=== PATIENT | female | born 1950 | race Caucasian/White ===

== ENCOUNTER 2020-01-28 10:16 | Outpatient (CLI) | payer MEDICARE, SELFPAY ==
--- NOTE | ~2020-01-28 | CT_ITS ---
EXAMINATION: CT chest wo con EXAM DATE: 01/28/2020 10:41 INDICATION: Pulmonary nodule follow-up. TECHNIQUE: Spiral CT of the chest without contrast. Axial, coronal and sagittal images were reviewe d. Coronal maximum intensity pixel images of chest reviewed. The dose-length product (DLP) for this examination was 70.14 mGy-cm. The exposure was tailored according to patient size (auto mA exposure control), and iterative reconstruction (ASIR) was used as additional dose reduction technique. Sandoval rison is made to prior examination from 02/09/2019. FINDINGS: Slight interval decrease in previously seen right upper lobe 6 mm nodule, now measuring ab out 5 mm. Several additional nodules bilaterally 3 mm or less, stable. There is mild emphysema and hy perinflation. Linear by basilar subsegmental atelectasis. There are no pleural or pericardial effusio ns. Tracheobronchial tree is patent. There is no mediastinal, hilar or axillary lymphadenopathy. There is no pneumothorax. Heart normal in size. There is mild coronary arterial calcification, arterial sclerosis. Upper abdomen is unremarkable. There is thoracic spondylosis without osteoblas tic or osteolytic lesions identified. IMPRESSION: 1. Small granulomas requiring no further evaluation. 2. Mild emphysema and hyperinflation. Reviewed, dictated and finalized at location A.
== END 2020-01-28 10:17 | disposition home or self-care (01) ==
LOC: ANHIMG 10:19
PROVIDERS: PCP Internal Medicine; Visit Provider Internal Medicine
DX: R91.1 Solitary pulmonary nodule (principal); J43.9 Emphysema, unspecified; R91.8 Other nonspecific abnormal finding of lung field
CPT/HCPCS: 71250

== ENCOUNTER 2020-06-02 13:47 | Outpatient (CLI) | payer MEDICARE, SELFPAY ==
--- NOTE | ~2020-06-02 | US_ITS ---
EXAMINATION: US carotid duplex BI DATE: 06/02/2020 14:29 INDICATION: Carotid stenosis TECHNIQUE: Grayscale, color Doppler, and pulsed Doppler images of the cervical carotid arteries were obtained. The degree of vessel stenosis is placed in one of the following categories: normal, <50%, 5 0-69%, >=70% but less than near-occlusion, near-occlusion, or total occlusion. Note that percent sten osis relative to normal distal artery lumen diameter is indirectly measured from velocity measurement s as described by William, et al. Radiology 2003; 229:340-346. Notes: Normal: Peak systolic velocity <125 centimeters/sec and no plaque <50%. Peak systolic velocity <125 ( EDV <40; ICA/CCA PSV ratio <2.0; used these factors only a tandem lesions or low cardiac output or co ntralateral disease) 50-69 %: PSV 125-230 (EDV 40-100; ratio 2-4) >= 70% but less than near occlusion: PSV greater than 230 (EDV > 100; ratio> 4.0) Near Occlusion: PSV that is variable; markedly narrowed lumen Occlusion: Absent flow on color/spectral Doppler and no lumen on berger scale. COMPARISON: None. FINDINGS: RIGHT: The right common carotid artery (CCA) peak systolic velocity (PSV) is 76 cm/s. The right internal car otid artery (ICA) PSV is 155 cm/s. The right ICA end-diastolic velocity (EDV) is 32 cm/s. The right I CA/CCA PSV ratio is 2.1. The external carotid artery (ECA) PSV is 142 cm/s. There is antegrade flow i n the right vertebral artery. LEFT: The left CCA PSV is 81 cm/s. The left ICA PSV is 87 cm/s. The left ICA EDV is 22 cm/s. The left ICA/C CA PSV ratio is 1.1. The ECA PSV is 66 cm/s. There is antegrade flow in the left vertebral artery. IMPRESSION: 1. 50-69% stenosis in the right internal carotid artery by sonographic criteria. 2. Less than 50% stenosis in the left internal carotid artery by sonographic criteria. Reviewed, dictated and finalized at location B. IMPRESSION: 1. 50-69% stenosis in the right internal carotid artery by sonographic criteria . 2. Less than 50% stenosis in the left internal carotid artery by sonographic cr iteria.
== END 2020-06-02 13:48 | disposition home or self-care (01) ==
PROVIDERS: PCP Internal Medicine; Visit Provider Internal Medicine
DX: R09.89 Other specified symptoms and signs involving the circulatory and respiratory systems (principal); I65.23 Occlusion and stenosis of bilateral carotid arteries
CPT/HCPCS: 93880

== ENCOUNTER 2020-08-25 15:17 | Outpatient (CLI) | payer MEDICARE, SELFPAY ==
--- NOTE | ~2020-08-25 | MM_ITS ---
EXAMINATION: MM screening natalya BI w serene HISTORY: Screening TECHNIQUE: Craniocaudal and mediolateral oblique 3-D tomosynthesis images were obtained and synthetic 2-D images were generated. CAD analysis was submitted and interpreted. COMPARISON: Comparison to multiple prior studies sequentially, with oldest reviewed study dated 01/03. BREAST PARENCHYMAL COMPOSITION: The breasts are heterogeneously dense, which may obscure small masses . FINDINGS: There is no evidence of suspicious mass, calcification, or architectural distortion to sugg est malignancy in either breast. There has been no suspicious interval change. IMPRESSION: 1. No mammographic evidence of malignancy. 2. Recommend routine screening mammography in one year. BI-RADS Category 1: Negative Reviewed, dictated and finalized at location A.
== END 2020-08-25 15:18 | disposition home or self-care (01) ==
LOC: ANHIMG 15:31
PROVIDERS: PCP Internal Medicine; Visit Provider Obstetrics & Gynecology
DX: Z12.31 Encounter for screening mammogram for malignant neoplasm of breast (principal)
CPT/HCPCS: 77063; 77067

== ENCOUNTER 2020-09-16 16:22 | Emergency (ER) | payer MEDICARE, SELFPAY ==
[2020-09-16] VITALS (9 sets, daily range): BP systolic 135–183; BP diastolic 63–73; PULSE 86–95; RESP 12–26; TEMP 36.4–36.7; O2SAT 95–97
--- NOTE | ~2020-09-16 | XR_ITS ---
EXAMINATION: XR chest 2V 09/16/2020 18:42 INDICATION: Dizziness. Vomiting. Shortness of breath. PROCEDURE: AP and lateral views of the chest COMPARISON: 2 view chest FINDINGS: The lungs are clear. The lungs are hyperinflated which is consistent with, but not diagnost ic of chronic obstructive pulmonary disease. The cardiomediastinal silhouette is within normal limits . There are no pleural effusions. There is no pneumothorax suspected. IMPRESSION: 1: NO ACUTE CARDIOPULMONARY DISEASE. Reviewed, dictated and finalized at location A.
--- NOTE | ~2020-09-16 | CT_ITS ---
EXAMINATION: CTA brain carotid DATE: 09/16/2020 20:38 CDT INDICATION: Right arm weakness. TECHNIQUE: Computed tomographic angiography (CTA) of the head was performed without and with 100 mL O mnipaque-350 intravenous contrast. CTA of the neck was performed with intravenous contrast. The dose- length product was 1594.90 mGy-cm. Maximum intensity projection and volume rendered 3D-reconstruction s were created by the technologist on a separate workstation. COMPARISON: CT dated 08/09/2014. FINDINGS: HEAD CTA: There is hypoattenuation of the right frontal lobe, suspicious for subacute/chronic infarct ion. Consider correlation with MRI to further assess acuity. Stable hyperdense lesion right caudate h ead, possibly treated metastatic disease. Patient has known history of malignant melanoma. There are scattered mild periventricular and subcortical white matter changes, most likely related to small ves fxo ischemic disease (microangiopathy). No there are bilateral lens implants. Small osteoma left ethm oid air cells. There is atherosclerotic change of the intracranial vasculature. There is a 4 mm aneurysm at the junction of M1 and M2 segments of the right MCA. No significant steno sis or occlusion in the central or large intracranial arteries. There is atherosclerotic change of th e distal ICAs. No significant stenosis. NECK CTA: There is atherosclerosis of the carotid bulbs and proximal ICAs. No significant stenosis, o cclusion or dissection. There is prominence of the esophageal wall, suspicious for esophagitis. There is atherosclerosis of the aorta at the origin of the great vessels without significant stenosis. The re is atherosclerosis of the vertebral arteries. Scarring of the lung apices with emphysematous finney es. Mediastinal lymph nodes are mildly prominent, likely reactive. These are partially visualized. He terogeneous thyroid gland with small subcentimeter hypodensities, likely benign. There are degenerati ve changes of the spine. There is less than 50% stenosis of the proximal right internal carotid artery relative to normal dist al artery lumen diameter (NASCET criteria). There is less than 50% stenosis of the proximal left inte rnal carotid artery relative to normal distal artery lumen diameter. IMPRESSION: 1. Focal hypoattenuation right frontal lobe, suspicious for subacute/chronic infarction. Consider cor relation with MRI. 2: Stable hyperdense lesion right caudate nucleus. 3: 4 mm intracranial aneurysm at the junction of M1 and M2 segments of the right MCA. 4: Atherosclerotic changes of the carotid arteries with left-sided and 50% stenosis of the internal c arotid arteries by NASCET criteria. 5: Thickening of the esophagus, suspicious for esophagitis. Reviewed, dictated and finalized at location A. IMPRESSION: 1. Focal hypoattenuation right frontal lobe, suspicious for subacute/chronic in farction. Consider correlation with MRI. 2: Stable hyperdense lesion right caudate nucleus. 3: 4 mm intracranial aneurysm at the junction of M1 and M2 segments of the righ t MCA. 4: Atherosclerotic changes of the carotid arteries with left-sided and 50% sten osis of the internal carotid arteries by NASCET criteria. 5: Thickening of the esophagus, suspicious for esophagitis.
--- NOTE | 2020-09-16 17:17 | ED.GENADULT ---
HPI - General Adult General Chief complaint: Neuro Symptoms/Deficit Stated complaint: limb weakness Time Seen by Provider: 09/16/20 16:40 Source: patient History of Present Illness HPI narrative: 70-year-old female presents to emergency department for right arm weakness that she noticed earlier today prior to arrival. Patient states he was in the shower, and was having difficulty using her right arm. This lasted for a few minutes. Patient states he has never had this in the past before. She states she felt dizzy and vomited afterwards. She currently reports a headache at this time, has had this headache for about 3 weeks. Related Data Home Medications Medication Instructions Recorded Confirmed calcium citrate-ergocalciferol tablet PO 10/31/19 09/02/20 (vitamin D2) 250 mg-100 unit tablet multivitamin 1 tablet PO DAILY 10/31/19 09/02/20 vit C-vit L-bkgflu-gwyu ox-lutein cap PO 10/31/19 09/02/20 226 mg-200 unit-5 mg-0.8 mg capsule Allergies Allergy/AdvReac Type Severity Reaction Status Date / Time Sulfa (Sulfonamide Allergy Mild Rash Verified 09/16/20 16:34 Antibiotics) Review of Systems Review of Systems: Narrative: CONSTITUTIONAL: Denies fever, chills, or sweats. EYES: Denies visual changes, redness, or discharge. ENT: Denies rhinorrhea, congestion, sore throat, or otalgia. CARDIOVASCULAR: Denies chest pain, palpitations, or edema. RESPIRATORY: Denies cough or dyspnea. GASTROINTESTINAL: Denies abdominal pain, nausea, vomiting, or diarrhea. GENITOURINARY: Denies dysuria or hematuria. SKIN: Denies rash or itching. MUSCULOSKELETAL: Denies back pain, joint pain, or myalgia. NEUROLOGIC: Denies headache, numbness, dizziness. Reports right arm weakness earlier today. PSYCHIATRIC: Denies anxiety or depression. All systems reviewed & are unremarkable except as noted in HPI and below (ROS) [facility] Family History Family History Sibling Hypertension Father Family history of Alzheimer's disease Patient's father is Mother Family history of lung cancer Patient's mother is Social History Social History Smoking packs per day: 0.75 Smoking cigarettes per day: 15.0 Smoking status: Current every day smoker Tobacco type: cigarettes Second hand tobacco smoke exposure: Yes Smoking end date: 11/21/75 Alcohol intake: current Substance use: never Gender identity (if verbalized by the patient): Female Exam Narrative: Exam Narrative: GENERAL: Well-appearing, well-nourished, and in no acute distress. HEAD: Normocephalic, atraumatic. EYES: PERRLA and EOMI. ENT: Nares clear, no rhinorrhea or epistaxis. Mucous membranes moist. NECK: Supple. CHEST: Clear to auscultation. No respiratory distress. HEART: Regular rate and rhythm. No murmur heard. Normal peripheral pulses. ABDOMEN: Soft, nontender, nondistended, normal active bowel sounds. EXTREMITIES: Normal range of motion. No edema. SKIN: Warm, dry, no rash. NEURO: No focal deficits. Alert and oriented x3. NIH 0 PSYCH: Normal mood and affect. Course Reevaluation(s) Reevaluation #1: [id number] - discussed case [facility] Neurology, I will contact [facility] neurosurgery. Consultations Consultation #1: [id number] - discussed case [facility] neurosurgery, Dr. Titus, ok to transfer to [facility] ER 2155 - Dr. Arreguin, [facility] ER accepts patient. Vital Signs Vital signs: Vital Signs Temperature 36.4 C L 09/16/20 16:29 Pulse Rate 91 09/16/20 16:29 Respiratory Rate 15 09/16/20 16:29 Blood Pressure 166/69 H 09/16/20 16:29 Pulse Oximetry 97 09/16/20 16:29 Temperature 36.8 C 09/17/20 00:01 Pulse Rate 90 09/17/20 00:40 Respiratory Rate 14 09/17/20 00:40 Blood Pressure 153/72 H 09/17/20 00:40 Pulse Oximetry 96 09/17/20 00:40 Medical Decision Making MDM Narrative Medical decision making narrative: I had kandy
--- NOTE | 2020-09-16 17:20 | ECG_ITS ---
Measurements Intervals [place] Rate: 81 P: 51 HI: 181 QRS: 4 QRSD: 73 T: -10 QT: 366 QTc: 426 Interpretive Statements SINUS RHYTHM POSSIBLE LEFT ATRIAL ENLARGEMENT BORDERLINE R WAVE PROGRESSION, ANTERIOR LEADS CONSIDER INFERIOR INFARCT, AGE INDETERMINATE BORDERLINE T WAVE ABNORMALITY- LATERAL LEADS BASELINE WANDER- I, II, AVR, AVL ABNORMAL ECG Electronically Signed On 09-17-2020 6:51:28 CDT by José Antonio Esquivel D.O.
[2020-09-16 17:37] LABS: Basophils Absolute Auto 0.1 K/mm3 (0.0-0.1); Basophils Percent Auto 0.8 % (0.2-1.2); Eosinophils Absolute Auto 0.1 K/mm3 (0-0.3); Hematocrit 39.7 % (37.0-47.0); Hemoglobin 13.4 g/dL (12.0-15.0); Immature Granulocyte Absolute 0.07 K/mm3 (0.00-0.031); Immature Granulocyte Percent A 0.5 % (0-0.5); Lymphocytes Absolute Auto 1.76 K/mm3 (0.9-3.2); Lymphocytes Percent Auto 13.4 % (18.3-44.2); Mean Corpuscular HGB Conc 33.8 g/dl (32-36); Mean Corpuscular Volume 94.7 fl (80-100); Mean Platelet Volume 10.2 fl (7.4-10.4); Monocytes Absolute Auto 0.8 K/mm3 (0.1-0.6); Monocytes Percent Auto 5.7 % (2.6-8.5); Neutrophils Absolute Auto 10.3 K/mm3 (1.3-6.7); Neutrophils Percent Auto 78.6 % (45.5-73.1); Platelet Count Result 157 k/mm3 (150-375); Red Blood Count 4.19 M/mm3 (4.2-5.4); Red Cell Distribution Width 13.9 % (11.5-14.5); White Blood Count 13.2 K/mm3 (4.5-10.0)
[2020-09-16 17:47] LABS: Prothrombin Time 13.2 Seconds (11.1-14.7)
[2020-09-16 17:49] LABS: Alanine Aminotransferase 16 U/L (4-35); Albumin Level 3.4 g/dL (3.5-5.1); Alkaline Phosphatase 99 U/L (38-126); Anion Gap 3 mmol/L (8-16); Aspartate Amino Transferase 38 U/L (14-36); Bilirubin,Total 0.4 mg/dL (0.2-1.3); Blood Urea Nitrogen 20 mg/dL (7-17); Calcium 9.4 mg/dL (8.4-10.2); Carbon Dioxide 32 mmol/L (22-30); Chloride 100 mmol/L (98-107); Estimated CRCL calculation 38 ml/min; Estimated Glomerular Filt Rate 44; Glucose 111 mg/dL (65-105); Potassium 3.5 mmol/L (3.4-5.0); Sodium 135 mmol/L (137-145)
[2020-09-16 18:47] LABS: Add Urine Microscopic? YES; Appearance Urine Cloudy (Clear); Bacteria Urine Trace /hpf; Bilirubin Urine Negative (Negative); Blood Urine Negative (Negative); Color Urine Yellow (Yellow); Glucose Urine UA 2+ mg/dL (Negative); Ketones Urine Trace mg/dL (Negative); Leukocyte Esterase Ur Negative LEU/UL (Negative); Mucus Urine Rare /lpf; Nitrate Urine Negative (Negative); Protein Urine 3+ mg/dL (Negative); Squamous Epithelial Cell Urine Few /hpf (Few); Urobilinogen Urine Negative mg/dL (<2.0); WBC Urine 16-20 /hpf
[2020-09-16 18:48] LABS: Specific Grav Ur 1.039 (1.001-1.035)
[2020-09-16] MEDS: PROCHLORPERAZINE EDISYLATE 10 MG/2 ML VIAL 5 MG IV PUSH ×2 (19:57→23:28)
[2020-09-16] MEDS: SODIUM CHLORIDE 0.9% IV 50 ML 999 ML ×2 (19:57→23:37)
--- NOTE | 2020-09-16 20:02 | PC.NURSE ---
50mL normal saline used for Compazine infusion.
[2020-09-16] MEDS: ASPIRIN 81 MG CHEWABLE TABLET 324 MG PO (23:29)
--- NOTE | 2020-09-16 23:37 | PC.NURSE ---
50mL NS used for Compazine infusion.
--- NOTE | 2020-09-16 23:41 | PC.NURSE ---
called [facility] to transport patient to [facility] . ETA [id number]
--- NOTE | 2020-09-16 23:44 | PC.NURSE ---
called [facility] to request transport. [facility] not available.
--- NOTE | 2020-09-16 23:51 | PC.NURSE ---
called [facility] to request transport. Accepted with ETA drive time from [place].
[2020-09-17 00:01] VITALS: BP 178/68; PULSE 93; RESP 14; TEMP 36.8; O2SAT 95
[2020-09-17 00:40] VITALS: BP 153/72; PULSE 90; RESP 14; O2SAT 96
== END 2020-09-17 00:41 | disposition short-term general hospital (02) ==
PROVIDERS: Emergency Provider Emergency Medicine; PCP Internal Medicine
DX: I67.1 Cerebral aneurysm, nonruptured (principal); G45.9 Transient cerebral ischemic attack, unspecified; F17.210 Nicotine dependence, cigarettes, uncomplicated
CPT/HCPCS: 36415; 70496; 70498; 71046; 80053; 81001; 85025; 85055; 85610; 87086; 93005; 96374; 96376; 99285; A9270; J0780; Q9967

== ENCOUNTER 2020-10-02 12:05 | IRF | payer MEDICARE, SELFPAY ==
[2020-10-02 12:05] VITALS: BP 157/59; PULSE 94; RESP 18; TEMP 36.6; O2SAT 97; BMI 24.5
--- NOTE | 2020-10-02 12:37 | ADMGEN ---
Arrived via personal vehicle at 1205, to floor by wheelchair.This patient, Miladis Galan, was admitted to [facility] Room 221-01. Patient/family oriented to hospital policies and general routines including ID bracelet, bed and alarms, visiting hours, pain management, procedures, bathroom and other care routines, personal items, smoking policy, room service/diet, and visiting hours. Information on how to activate the Rapid Response Team has been discussed. Patient/Family are encouraged to report perceived risks to care and to ask questions if they do not understand what they are told or what they should do.
[2020-10-02 14:24] VITALS: BMI 24.5
[2020-10-02] MEDS: ACETAMINOPHEN 500 MG TABLET PO ×2 (18:48→22:17)
[2020-10-02] MEDS: SIMVASTATIN 10 MG TABLET PO (21:37)
[2020-10-02] MEDS: HEPARIN SODIUM 5,000 UNITS/ML VIAL 5000 UNITS SUB-Q (21:38)
[2020-10-02 21:41] VITALS: BP 154/58; PULSE 94; RESP 20; TEMP 36.8; O2SAT 94
[2020-10-03] MEDS: ACETAMINOPHEN 500 MG TABLET PO ×6 (02:18→20:48)
[2020-10-03 05:37] LABS: Basophils Absolute Auto 0.1 K/mm3 (0.0-0.1); Basophils Percent Auto 0.9 % (0.2-1.2); Eosinophils Absolute Auto 0.2 K/mm3 (0-0.3); Eosinophils Percent Auto 3.5 % (0-4.4); Hematocrit 24.1 % (37.0-47.0); Hemoglobin 7.8 g/dL (12.0-15.0); Immature Granulocyte Absolute 0.03 K/mm3 (0.00-0.031); Immature Granulocyte Percent A 0.5 % (0-0.5); Lymphocytes Absolute Auto 1.41 K/mm3 (0.9-3.2); Lymphocytes Percent Auto 25.8 % (18.3-44.2); Mean Corpuscular HGB Conc 32.4 g/dl (32-36); Mean Corpuscular Hemoglobin 31.1 pg (26-34); Mean Platelet Volume 9.9 fl (7.4-10.4); Monocytes Absolute Auto 0.4 K/mm3 (0.1-0.6); Neutrophils Absolute Auto 3.4 K/mm3 (1.3-6.7); Neutrophils Percent Auto 61.3 % (45.5-73.1); Platelet Count Result 289 k/mm3 (150-375); Red Blood Count 2.51 M/mm3 (4.2-5.4); Red Cell Distribution Width 14.7 % (11.5-14.5); White Blood Count 5.5 K/mm3 (4.5-10.0)
[2020-10-03 05:50] LABS: Anion Gap 4 mmol/L (8-16); Blood Urea Nitrogen 12 mg/dL (7-17); Calcium 8.6 mg/dL (8.4-10.2); Carbon Dioxide 27 mmol/L (22-30); Chloride 107 mmol/L (98-107); Cholesterol 278 mg/dL (0-200); Estimated CRCL calculation 63 ml/min; Estimated Glomerular Filt Rate > 60; Glucose 97 mg/dL (65-105); HDL Direct 57 mg/dL; Potassium 3.7 mmol/L (3.4-5.0); Sodium 138 mmol/L (137-145); Triglycerides 262 mg/dL (<150)
[2020-10-03 05:51] VITALS: BP 151/77; PULSE 94; RESP 20; TEMP 37.1; O2SAT 98
[2020-10-03 06:00] LABS: LDL Cholesterol Direct 169 mg/dL
[2020-10-03] MEDS: HEPARIN SODIUM 5,000 UNITS/ML VIAL 5000 UNITS SUB-Q ×3 (06:11→20:46)
[2020-10-03] MEDS: amLODIPine BESYLATE 5 MG TABLET PO (08:48)
[2020-10-03] MEDS: ASPIRIN 81 MG CHEWABLE TABLET PO (08:48)
[2020-10-03] MEDS: CALCIUM/VITAMIN D 250 MG TABLET 1 TABLET PO (08:48)
[2020-10-03] MEDS: MULTIVITAMINS THERAPEUTIC TAB (*BKC) 1 TABLET PO (08:48)
[2020-10-03] MEDS: PANTOPRAZOLE 40 MG TABLET PO (08:48)
[2020-10-03 13:07] VITALS: BMI 24.5
--- NOTE | 2020-10-03 13:30 | WPDREHABHP ---
H&P: HPI History of Present Illness Date/Time: 10/03/20 13:30 Chief complaint: Right MCA Aneurysm Narrative: Miladis Galan is a 70 year old femaleHISTORY OF PRESENT ILLNESS: The patient's primary rehab impairment category is [] brain dysfunction that is nontraumatic in nature The etiologic diagnosis is [] right MCA aneurysm I saw this patient [id number] on [] on October 03, 2020 at 1:00 p.m. The patient is a [] 70 years old female with a past medical history of chronic obstructive pulmonary disease, obstructive sleep apnea with no CPAP, hypertension, hyperlipidemia, macular degeneration, ruptured cavernoma, and a family history of aneurysm and known right middle cerebral artery aneurysm who presented to [facility] on September 17, 2020 with a sudden onset of right-sided weakness and nausea. Patient reported having headache for approximately 4 weeks prior to presentation. CT head did not show any obvious subarachnoid hemorrhage, however, the patient was treated as an aneurysm rupture. CTA showed the known right middle cerebral artery aneurysm slightly larger. Neurosurgery was consulted and on September 20, 2020 the patient underwent a right craniotomy for aneurysm clipping. ITZEL drain removed on September 22, 2020. She was extubated on September 21, 2020 and since extubation the patient has required 2 to 3 L nasal cannula of oxygen, despite no oxygen requirement at home previously. Chest x-ray demonstrated volume overload with vascular and interstitial prominence with likely effusions left greater than right. The patient received IV furosemide on 09/26 and diuresed 1.8 letter +one un measure urine output. her weight has been unchanged the entire hospitalization, although, the patient reports new onset of lower and upper extremity edema and dyspnea and mild orthopnea throughout the hospitalization. At baseline the patient reports being able to golf with a cart, walk around the yd, and carry laundry up and down the stairs. She is now on room air and denies dyspnea. TTE performed on September 29, 2020 showed a normal EF and no evidence of cardiomyopathy. The patient's urine output over the last 24 hours was 3.1 later and she is currently on Lasix 20 mg p.o. daily and will continue on this at rehab. Her electrolytes are being monitored with BMPs daily. He was started on Symbicort and will remain on this at discharge. Patient is to follow-up with the PCP regarding CPAP for obstructive sleep apnea. She is currently on subcutaneous heparin for DVT prophylaxis and will continue on this until she is consistently ambulating 150ft COVID: the patient has not traveled outside the [place] or head contact with someone who is ill that has traveled outside the [place] in the past 21 days. The patient has not traveled to an area of the [place] there is experiencing no transmission of the Coronavirus and has not had close personal contact with anyone that has. The patient does not have a fever. The patient is not experiencing lower respiratory illness symptoms. Therapy was initiated at the acute care facility and the patient transferred to us from [facility] on October 02, 2020. FALLS OR SURGERIES: The patient has had major surgery this admission. The patient has had no falls in the past year. The patient has had no falls with injury in the past year. PAST MEDICAL HISTORY: COPD, hypertension, hyperlipidemia, melanoma, MCA aneurysm. PAST SURGICAL HISTORY: breast surgery, appendicectomy, hysterectomy, biopsy, . SOCIAL HISTORY: . The patient lives with her in a 1 level home with 1 step to enter. She was completely independent previously with no assistive device. She does not drive due to macular degeneration. She does play golf. Her is retired and is a available to assist her following rehab if she needs it. She denies falls. She had a major surgery this admission. Current everyday smoker.
[2020-10-03 14:00] VITALS: BP 146/68; PULSE 92; RESP 18; TEMP 36.5; O2SAT 96
--- NOTE | 2020-10-03 14:19 | RPD ---
INDIVIDUALIZED PLAN OF CARE FOR Miladis Galan Brief Synthesis of Pre-Admission Screen, Post-Admission Evaluation and Therapy Evaluations: The patient presents to rehab with a right MCA aneurysm. Comorbidities include status post craniotomy for aneurysm clipping, respiratory insufficiency requiring supplemental oxygen, volume overload, normocytic anemia, COPD, obstructive sleep apnea, hypertension, hyperlipidemia, acute postoperative pain, and weakness. The complexity of the patient's medical management, nursing, and therapy needs require an inpatient rehab hospital stay with a physician-led interdisciplinary team approach. The patient?s needs will be best met in an intensive program vs. at a lower level of care. The patient requires physician services for neurology services, medical oversight, and coordination of care. The patient needs physician monitoring and treatment of anemia, volume overload, monitoring for adverse reactions to new medications, monitoring of infection, and pain control. The patient requires nursing services for frequent neuro checks, anticoagulation therapy, medication management and education, pressure relief and skin care management, monitoring of labs, bowel and bladder training, and fall/safety precautions. Deficits include:ADLs, Balance, Cognition, Endurance, Family Training/Education, Mobility, Pain Management, ROM, Safety, Strength, Transfers [employer] Pan[employer] Plater/Case Management for: Discharge Planning and Patient/Family Counseling Physical Therapy: 5 days per week for 90 minutes. Treatments may include: Therapeutic Exercise, Gait Training, Neuromuscular Re-education, Transfer Training, Community Reintegration, Bed Mobility, Patient/Family Education, Wheelchair Mobility Group Therapy/Concurrent Therapy Rationales: -Improve attention span during functional activities in a distracted environment. -Enhance problem solving and/or adequate judgment skills during functional activities in a distracted environment. -Promote increased safety awareness in a distracted environment to reduce fall risk with functional tasks, transfers, and ambulation to allow a more safe, self-sufficient return to the home environment. -Improve dynamic balance skills to promote safety and independence with functional activities in a distracted environment for maximum gain. Occupational Therapy: 5 days per week for 90 minutes. Treatments may include: Therapeutic Exercise, Therapeutic Activity, Cognitive Training, Self-Care Transfer Training, Community Reintegration, Home Management, Patient/Family Education, Wheelchair Mobility Training, Energy Conservation Training Group Therapy/Concurrent Therapy Rationales: -Allow therapist to observe and teach generalization and carry-over of skills learned in individual therapy. -Enhance problem solving and sequencing skills during therapeutic activities in a distracted environment. -Promote increased safety awareness in a realistic setting to reduce fall risk with functional tasks due to visual and verbal distractions. -Increase functional level with ADLs, ADL transfers and use of adaptive equipment through therapeutic activities with others while promoting safety to allow a more safe, self-sufficient return home. Medical Prognosis: Good Anticipated Length of Stay: 10 days Rehab Goals: Eating Goal: 06-Independent Oral Hygiene Goal: 06-Independent Toileting Hygiene Goal: 06-Independent Shower/Bathe Self Goal: 05-Setup or Clean Up Assistance Upper Body Dressing Goal: 05-Setup or Clean Up Assistance Lower Body Dressing Goal: 05-Setup or Clean Up Assistance Putting On/Taking Off Footwear Goal: 06-Independent Rolling Left and Right Goal: 06-Independent Sit to Lying Goal: 06-Independent Lying to Sitting on Side of Bed Goal: 06-Independent Sit to Stand Goal: 06-Independent Chair/Zjm-[id number]-Emvlo Transfer Goal: 06-Independent Toilet Transfer Goal: 06-Independent Car Transfer Goal: 06-Independent Walk 10' Goal: 06-Independent Walk
[2020-10-03 20:00] VITALS: PULSE 92; RESP 18; O2SAT 96
[2020-10-03] MEDS: SIMVASTATIN 10 MG TABLET PO (20:45)
[2020-10-03 22:00] VITALS: TEMP 36.6
[2020-10-04] MEDS: ACETAMINOPHEN 500 MG TABLET PO ×6 (02:02→22:57)
[2020-10-04 06:00] VITALS: BP 151/61; PULSE 88; RESP 18; TEMP 36.9; O2SAT 98
[2020-10-04] MEDS: HEPARIN SODIUM 5,000 UNITS/ML VIAL 5000 UNITS SUB-Q (06:38)
[2020-10-04] MEDS: PANTOPRAZOLE 40 MG TABLET PO (09:42)
[2020-10-04] MEDS: MULTIVITAMINS THERAPEUTIC TAB (*BKC) 1 TABLET PO (09:43)
[2020-10-04] MEDS: ASPIRIN 81 MG CHEWABLE TABLET PO (09:43)
[2020-10-04] MEDS: CALCIUM/VITAMIN D 250 MG TABLET 1 TABLET PO (09:44)
[2020-10-04] MEDS: amLODIPine BESYLATE 5 MG TABLET PO (09:44)
[2020-10-04 09:50] VITALS: PULSE 82; RESP 18; O2SAT 98
--- NOTE | 2020-10-04 11:48 | WPDNEURORHBP ---
Subjective Date/time seen: 10/04/20 11:48 70 years old lady has been admitted to the rehab floor on transfer from [facility] for the diagnosis of right middle cerebral artery aneurysm. In addition has ongoing history of 1. Chronic obstructive pulmonary disease 2. Obstructive sleep apnea with no CPAP 3. Hypertension 4. Hyperlipidemia 5. Macular degeneration 6. 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 Status post craniotomy for the right middle cerebral artery aneurysm clipping. Since admission here she has been involved in the physical therapy and occupational therapy on today's exam her blood pressure is 151/61 with pulse 88 she is afebrile and has no specific complaints particularly no headaches. Review of Systems Review of Systems: All systems reviewed & are unremarkable except as noted in HPI and below Functional Status Ambulation Ability Ability to Ambulate 10 Feet: Minimum Assistance X 1 Ability to Ambulate 50 Feet With 2 Turns: Minimum Assistance X 1 Ambulation Assistive Devices: Walker, Wheeled Exam Narrative: Exam Narrative: On examination today she is awake alert sitting in chair communicating very well with no dysarthria no dysphagia no dysphonia. She does not complain of any headaches. Pupils round regular reacting to light equally. Facial grimace symmetrical tongue in the midline. Motor examination reveals no evidence of drift of She is able to ambulate sit and stand without any truncal in stability heart regular with no murmur lungs clear to auscultation abdomen is soft Objective Data Vital Signs Vital Signs: Vital Signs - 24 hr 10/03/20 14:00 10/03/20 20:00 10/03/20 22:00 Temperature 36.5 C 36.6 C Pulse Rate 92 92 Respiratory Rate 18 18 Blood Pressure 146/68 H Pulse Oximetry 96 96 10/04/20 06:00 Temperature 36.9 C Pulse Rate 88 Respiratory Rate 18 Blood Pressure 151/61 H Pulse Oximetry 98 Intake/Output Intake/Output: Intake & Output 10/01/20 10/02/20 10/03/20 10/04/20 23:59 23:59 23:59 23:59 Intake Total 360 720 240 Balance 360 720 240 Meds/Results Medications: Active Medications Generic Name Dose Route Start Last Admin Trade Name Freq PRN Reason Stop Dose Admin Acetaminophen 500 mg 10/02/20 18:00 10/04/20 09:43 Acetaminophen 500 Mg Tablet PO 500 mg Q4H BARRY Administration Acetylcysteine 600 mg 10/02/20 14:37 Acetylcysteine 20% Inhal Soln 800 Mg/4 Ml Vial INHALATION DAILY PRN Secretions Albuterol 2.5 mg 10/02/20 14:06 Albuterol Sulfate Neb 2.5 Mg/0.5 Ml Inh INHALATION QID PRN Shortness Of Breath Amlodipine Besylate 5 mg 10/03/20 09:00 10/04/20 09:44 Amlodipine Besylate 5 Mg Tablet PO 5 mg DAILY BARRY Administration Aspirin 81 mg 10/03/20 08:00 10/04/20 09:43 Aspirin 81 Mg Chewable Tablet PO 81 mg DAILY@0800 BARRY Administration Budesonide/Formoterol Fumarate 2 puff 10/02/20 20:00 10/04/20 10:17 Budesonide/Form 160-4.5 Mcg (*Sp) INHALATION Not Given Q12HRT [facility] Calcium Carbonate 1 tablet 10/03/20 09:00 10/04/20 09:44 Calcium/Vitamin D 250 Mg Tablet PO 1 tablet QAM [facility] Administration Ipratropium [place] 0.5 mg 10/02/20 14:06 Ipratropium Br 0.02% Inh Soln 0.5 Mg/2.5 Ml Vial INHALATION QID PRN Shortness Of Breath Multi-Ingred Cream/Lotion/Oil/Oint 1 applic 10/03/20 08:46 Mineral Oil/Petrolatum,White 1 Applic EACH EYE Q8H PRN Dry Eye(s) Multivitamins Therapeutic 1 tablet 10/03/20 09:00 10/04/20 09:43 Multivitamins Therapeutic Tab (*Bkc) PO 1 tablet DAILY BARRY Administration Pantoprazole Sodium 40 mg 10/03/20 09:00 10/04/20 09:42 Pantoprazole 40 Mg Tablet PO 40 mg QAM BARRY Administration Simvastatin 10 mg 10/02/20 21:00 10/03/20 20:45 Simvastatin 10 Mg Tablet PO 10 mg HS BARRY Administration Sodium Chloride 1 spray 10/02/20 13:30 Saline 0.65% Nic Soln 44 Ml Btl NASAL Q1H PRN Dry Nasal
[2020-10-04 14:00] VITALS: BP 150/62; PULSE 84; RESP 20; TEMP 36.6; O2SAT 98
[2020-10-04 20:00] VITALS: PULSE 98; RESP 18; O2SAT 97
[2020-10-04] MEDS: SIMVASTATIN 10 MG TABLET PO (20:08)
[2020-10-04 21:04] VITALS: BP 137/63; PULSE 98; RESP 16; TEMP 36.7; O2SAT 97
[2020-10-04 21:14] VITALS: PULSE 98; RESP 18; O2SAT 97
[2020-10-05] MEDS: ACETAMINOPHEN 500 MG TABLET PO ×6 (01:29→20:19)
[2020-10-05 06:00] VITALS: BP 145/55; PULSE 82; RESP 18; TEMP 36.8; O2SAT 96
[2020-10-05] MEDS: ASPIRIN 81 MG CHEWABLE TABLET PO (08:21)
[2020-10-05] MEDS: PANTOPRAZOLE 40 MG TABLET PO (08:22)
[2020-10-05] MEDS: MULTIVITAMINS THERAPEUTIC TAB (*BKC) 1 TABLET PO (08:22)
[2020-10-05] MEDS: CALCIUM/VITAMIN D 250 MG TABLET 1 TABLET PO (08:22)
[2020-10-05] MEDS: amLODIPine BESYLATE 5 MG TABLET PO (08:22)
--- NOTE | 2020-10-05 11:47 | WPDNEURORHBP ---
Subjective Date/time seen: 10/05/20 11:47 70 years old lady has been admitted to the rehab floor on transfer from [facility] for the diagnosis of right middle cerebral artery aneurysm. In addition to multiple other comorbid conditions such as 1. Chronic obstructive pulmonary disease 2. Obstructive sleep apnea with no CPAP 3. Hypertension 4. Hyperlipidemia and 5. Macular degeneration 6. 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 On today's visit she is complaining of right jaw disc discomfort particularly when she tries to open in the food. She has no other associated symptomatology she is not febrile, medications remain the same. Review of Systems Review of Systems: All systems reviewed & are unremarkable except as noted in HPI and below Functional Status Ambulation Ability Ability to Ambulate 10 Feet: Contact Guard Ability to Ambulate 50 Feet With 2 Turns: Contact Guard Ability to Ambulate 150 Feet: Contact Guard Ambulation Assistive Devices: Walker, Wheeled Exam Narrative: Exam Narrative: on examination she is awake alert cooperative follows instructions very well speech is not dysphasic not dysarthric not dysphonic. She is sitting in chair comfortably. She is able to open the mouth and close the mouth, no swelling of the local jaw, ear nose throat exam normal neck supple heart regular lungs clear and neuro unchanged. Objective Data Vital Signs Vital Signs: Vital Signs - 24 hr 10/04/20 14:00 10/04/20 20:00 10/04/20 21:04 Temperature 36.6 C 36.7 C Pulse Rate 84 98 98 Respiratory Rate 20 18 16 Blood Pressure 150/62 H 137/63 Pulse Oximetry 98 97 97 10/04/20 21:14 10/05/20 06:00 Temperature 36.8 C Pulse Rate 98 82 Respiratory Rate 18 18 Blood Pressure 145/55 H Pulse Oximetry 97 96 Intake/Output Intake/Output: Intake & Output 10/02/20 10/03/20 10/04/20 10/05/20 23:59 23:59 23:59 23:59 Intake Total 360 720 720 240 Balance 360 720 720 240 Meds/Results Medications: Active Medications Generic Name Dose Route Start Last Admin Trade Name Freq PRN Reason Stop Dose Admin Acetaminophen 500 mg 10/02/20 18:00 10/05/20 10:44 Acetaminophen 500 Mg Tablet PO 500 mg Q4H BARRY Administration Acetylcysteine 600 mg 10/02/20 14:37 Acetylcysteine 20% Inhal Soln 800 Mg/4 Ml Vial INHALATION DAILY PRN Secretions Albuterol 2.5 mg 10/02/20 14:06 Albuterol Sulfate Neb 2.5 Mg/0.5 Ml Inh INHALATION QID PRN Shortness Of Breath Amlodipine Besylate 5 mg 10/03/20 09:00 10/05/20 08:22 Amlodipine Besylate 5 Mg Tablet PO 5 mg DAILY BARRY Administration Aspirin 81 mg 10/03/20 08:00 10/05/20 08:21 Aspirin 81 Mg Chewable Tablet PO 81 mg DAILY@0800 BARRY Administration Budesonide/Formoterol Fumarate 2 puff 10/02/20 20:00 10/05/20 08:17 Budesonide/Form 160-4.5 Mcg (*Sp) INHALATION 2 puff Q12HRT BARRY Administration Calcium Carbonate 1 tablet 10/03/20 09:00 10/05/20 08:22 Calcium/Vitamin D 250 Mg Tablet PO 1 tablet QAM BARRY Administration Ipratropium [place] 0.5 mg 10/02/20 14:06 Ipratropium Br 0.02% Inh Soln 0.5 Mg/2.5 Ml Vial INHALATION QID PRN Shortness Of Breath Multi-Ingred Cream/Lotion/Oil/Oint 1 applic 10/03/20 08:46 Mineral Oil/Petrolatum,White 1 Applic EACH EYE Q8H PRN Dry Eye(s) Multivitamins Therapeutic 1 tablet 10/03/20 09:00 10/05/20 08:22 Multivitamins Therapeutic Tab (*Bkc) PO 1 tablet DAILY BARRY Administration Pantoprazole Sodium 40 mg 10/03/20 09:00 10/05/20 08:22 Pantoprazole 40 Mg Tablet PO 40 mg QAM BARRY Administration Simvastatin 10 mg 10/02/20 21:00 10/04/20 20:08 Simvastatin 10 Mg Tablet PO 10 mg HS BARRY Administration Sodium Chloride 1 spray 10/02/20 13:30 Saline 0.65% Nic Soln 44 Ml Btl NASAL Q1H PRN Dry Nasal Passages Progress Note: A&P Assessment and Plan (1) Aneurysm: Code(s): I72.9 - Aneurysm of [facility]
[2020-10-05 14:00] VITALS: BP 151/61; PULSE 85; RESP 20; TEMP 37; O2SAT 99
[2020-10-05] MEDS: SIMVASTATIN 10 MG TABLET PO (20:19)
[2020-10-05 20:25] VITALS: BP 142/52; PULSE 81; RESP 18; TEMP 36.4; O2SAT 96
[2020-10-05 21:31] VITALS: PULSE 65; RESP 18; O2SAT 93
[2020-10-06] MEDS: ACETAMINOPHEN 500 MG TABLET PO ×6 (02:10→20:32)
[2020-10-06 05:39] VITALS: BP 158/58; PULSE 86; RESP 20; TEMP 36.4; O2SAT 99
[2020-10-06] MEDS: ASPIRIN 81 MG CHEWABLE TABLET PO (08:56)
[2020-10-06] MEDS: amLODIPine BESYLATE 5 MG TABLET PO (09:24)
[2020-10-06] MEDS: MULTIVITAMINS THERAPEUTIC TAB (*BKC) 1 TABLET PO (09:25)
[2020-10-06] MEDS: PANTOPRAZOLE 40 MG TABLET PO (09:25)
[2020-10-06] MEDS: CALCIUM/VITAMIN D 250 MG TABLET 1 TABLET PO (09:25)
--- NOTE | 2020-10-06 10:59 | WPDNEURORHBP ---
Subjective Date/time seen: 10/06/20 10:59 70 years old lady admitted to the rehab floor on transfer from [facility] the diagnosis of right middle cerebral artery aneurysm in addition to multiple comorbid conditions as mentioned previously. She is involved in a physical therapy and occupational therapy and has been gradually feeling better and better this morning she reported that she hit her head against the railing while trying to put some socks on I advised her not to do anything by yourself and let the people help you particularly when you're bending down Review of Systems Review of Systems: All systems reviewed & are unremarkable except as noted in HPI and below Functional Status Ambulation Ability Ability to Ambulate 10 Feet: Contact Guard Ability to Ambulate 50 Feet With 2 Turns: Contact Guard Ability to Ambulate 150 Feet: Contact Guard Ambulation Assistive Devices: Walker, Wheeled Transfers Ability Ability to Transfer In/Out of Chair: Standby Assistance Exam Narrative: Exam Narrative: she remains awake alert, his speech nor dysphasic not dysarthric, pupils round regular, eye rodríguez are normal, face symmetrical, tongue in the midline, and motor examination reveals no evidence of drift of 1 or other side heart regular lungs clear abdomen is soft Objective Data Vital Signs Vital Signs: Vital Signs - 24 hr 10/05/20 14:00 10/05/20 20:25 10/05/20 21:31 Temperature 37.0 C 36.4 C L Pulse Rate 85 81 65 Respiratory Rate 20 18 18 Blood Pressure 151/61 H 142/52 H Pulse Oximetry 99 96 93 10/06/20 05:39 Temperature 36.4 C L Pulse Rate 86 Respiratory Rate 20 Blood Pressure 158/58 H Pulse Oximetry 99 Intake/Output Intake/Output: Intake & Output 10/03/20 10/04/20 10/05/20 10/06/20 23:59 23:59 23:59 23:59 Intake Total 720 720 720 360 Balance 720 720 720 360 Meds/Results Medications: Active Medications Generic Name Dose Route Start Last Admin Trade Name Freq PRN Reason Stop Dose Admin Acetaminophen 500 mg 10/02/20 18:00 10/06/20 09:25 Acetaminophen 500 Mg Tablet PO 500 mg Q4H BARRY Administration Acetylcysteine 600 mg 10/02/20 14:37 Acetylcysteine 20% Inhal Soln 800 Mg/4 Ml Vial INHALATION DAILY PRN Secretions Albuterol 2.5 mg 10/02/20 14:06 Albuterol Sulfate Neb 2.5 Mg/0.5 Ml Inh INHALATION QID PRN Shortness Of Breath Amlodipine Besylate 5 mg 10/03/20 09:00 10/06/20 09:24 Amlodipine Besylate 5 Mg Tablet PO 5 mg DAILY BARRY Administration Aspirin 81 mg 10/03/20 08:00 10/06/20 08:56 Aspirin 81 Mg Chewable Tablet PO 81 mg DAILY@0800 BARRY Administration Budesonide/Formoterol Fumarate 2 puff 10/02/20 20:00 10/06/20 09:18 Budesonide/Form 160-4.5 Mcg (*Sp) INHALATION Not Given Q12HRT [facility] Calcium Carbonate 1 tablet 10/03/20 09:00 10/06/20 09:25 Calcium/Vitamin D 250 Mg Tablet PO 1 tablet QAM BARRY Administration Ipratropium [place] 0.5 mg 10/02/20 14:06 Ipratropium Br 0.02% Inh Soln 0.5 Mg/2.5 Ml Vial INHALATION QID PRN Shortness Of Breath Multi-Ingred Cream/Lotion/Oil/Oint 1 applic 10/03/20 08:46 Mineral Oil/Petrolatum,White 1 Applic EACH EYE Q8H PRN Dry Eye(s) Multivitamins Therapeutic 1 tablet 10/03/20 09:00 10/06/20 09:25 Multivitamins Therapeutic Tab (*Bkc) PO 1 tablet DAILY BARRY Administration Pantoprazole Sodium 40 mg 10/03/20 09:00 10/06/20 09:25 Pantoprazole 40 Mg Tablet PO 40 mg QAM BARRY Administration Simvastatin 10 mg 10/02/20 21:00 10/05/20 20:19 Simvastatin 10 Mg Tablet PO 10 mg HS BARRY Administration Sodium Chloride 1 spray 10/02/20 13:30 Saline 0.65% Nic Soln 44 Ml Btl NASAL Q1H PRN Dry Nasal Passages Progress Note: A&P Assessment and Plan (1) Aneurysm: Code(s): I72.9 - Aneurysm of unspecified site Status: Acute (2) Tobacco use: Code(s): Z72.0 - Tobacco use Status: Acute
--- NOTE | 2020-10-06 11:00 | PCPTNOTE ---
Miladis Galan was evaluated for a wheeled walker on 10/06/2020 by this physical therapist. The wheeled walker will resolve patient's mobility limitations and will be used for ADL's within the home. The patient can safely use the wheeled walker. ?The wheeled walker will resolve the patient?s mobility deficits, including impaired balance, decreased strength, and decreased endurance.
[2020-10-06 14:00] VITALS: BP 148/70; PULSE 82; RESP 18; TEMP 36.6; O2SAT 97
[2020-10-06 20:23] VITALS: PULSE 84; O2SAT 96
[2020-10-06] MEDS: SIMVASTATIN 10 MG TABLET PO (20:32)
[2020-10-06 22:00] VITALS: BP 168/53; PULSE 91; RESP 18; TEMP 36.5; O2SAT 99
[2020-10-07 05:32] VITALS: BP 161/58; PULSE 76; RESP 18; TEMP 36.9; O2SAT 100
[2020-10-07] MEDS: ACETAMINOPHEN 500 MG TABLET PO ×5 (05:33→22:07)
[2020-10-07] MEDS: PANTOPRAZOLE 40 MG TABLET PO (07:55)
[2020-10-07] MEDS: CALCIUM/VITAMIN D 250 MG TABLET 1 TABLET PO (07:55)
[2020-10-07] MEDS: ASPIRIN 81 MG CHEWABLE TABLET PO (07:55)
[2020-10-07] MEDS: MULTIVITAMINS THERAPEUTIC TAB (*BKC) 1 TABLET PO (07:55)
[2020-10-07] MEDS: amLODIPine BESYLATE 5 MG TABLET PO (07:55)
[2020-10-07 08:37] LABS: Basophils Percent Auto 0.7 % (0.2-1.2); Eosinophils Absolute Auto 0.2 K/mm3 (0-0.3); Eosinophils Percent Auto 3.2 % (0-4.4); Hematocrit 25.4 % (37.0-47.0); Hemoglobin 8.3 g/dL (12.0-15.0); Immature Granulocyte Absolute 0.02 K/mm3 (0.00-0.031); Immature Granulocyte Percent A 0.4 % (0-0.5); Lymphocytes Absolute Auto 0.95 K/mm3 (0.9-3.2); Lymphocytes Percent Auto 17.1 % (18.3-44.2); Mean Corpuscular HGB Conc 32.7 g/dl (32-36); Mean Corpuscular Hemoglobin 31.7 pg (26-34); Mean Corpuscular Volume 96.9 fl (80-100); Monocytes Absolute Auto 0.3 K/mm3 (0.1-0.6); Monocytes Percent Auto 5.6 % (2.6-8.5); Neutrophils Absolute Auto 4.1 K/mm3 (1.3-6.7); Platelet Count Result 350 k/mm3 (150-375); Red Blood Count 2.62 M/mm3 (4.2-5.4); Red Cell Distribution Width 15.7 % (11.5-14.5); White Blood Count 5.6 K/mm3 (4.5-10.0)
[2020-10-07 09:36] VITALS: PULSE 84; O2SAT 96
--- NOTE | 2020-10-07 10:52 | WPDNEURORHBP ---
Subjective Date/time seen: 10/07/20 10:52 70 years old lady has been admitted to the rehab floor on transfer from [facility] for the diagnosis of right middle cerebral artery aneurysm in addition to the multiple comorbid conditions she has been involved actively in physical therapy and occupational therapy and definitely showing signs of improvement she was most likely discharge on Tuesday that is 1123 the limit for the physical therapy and occupational therapy as an outpatient recently her hemoglobin has been less than 8 recheck the CBC and decide accordingly Review of Systems Review of Systems: All systems reviewed & are unremarkable except as noted in HPI and below Functional Status Ambulation Ability Ability to Ambulate 10 Feet: Standby Assistance Ability to Ambulate 50 Feet With 2 Turns: Standby Assistance Ability to Ambulate 150 Feet: Contact Guard Ambulation Assistive Devices: Walker, Wheeled Transfers Ability Ability to Transfer In/Out of Chair: Standby Assistance Exam Narrative: Exam Narrative: on examination she is awake alert cooperative in no obvious acute distress his speech nor dysphasic no dysarthric not dysphonic pupils round regular feels the vision full extraocular motions full face symmetrical tongue midline motor examination revealed her to have no drift reflexes symmetrical and plantar responses are downgoing Objective Data Vital Signs Vital Signs: Vital Signs - 24 hr 10/06/20 14:00 10/06/20 20:23 10/06/20 22:00 Temperature 36.6 C 36.5 C Pulse Rate 82 84 91 Respiratory Rate 18 18 Blood Pressure 148/70 H 168/53 H Pulse Oximetry 97 96 99 10/07/20 05:32 10/07/20 09:36 Temperature 36.9 C Pulse Rate 76 84 Respiratory Rate 18 Blood Pressure 161/58 H Pulse Oximetry 100 96 Intake/Output Intake/Output: Intake & Output 10/04/20 10/05/20 10/06/20 10/07/20 23:59 23:59 23:59 23:59 Intake Total 720 720 840 240 Balance 720 720 840 240 Meds/Results Medications: Active Medications Generic Name Dose Route Start Last Admin Trade Name Freq PRN Reason Stop Dose Admin Acetaminophen 500 mg 10/02/20 18:00 10/07/20 10:07 Acetaminophen 500 Mg Tablet PO 500 mg Q4H BARRY Administration Acetylcysteine 600 mg 10/02/20 14:37 Acetylcysteine 20% Inhal Soln 800 Mg/4 Ml Vial INHALATION DAILY PRN Secretions Albuterol 2.5 mg 10/02/20 14:06 Albuterol Sulfate Neb 2.5 Mg/0.5 Ml Inh INHALATION QID PRN Shortness Of Breath Amlodipine Besylate 5 mg 10/03/20 09:00 10/07/20 07:55 Amlodipine Besylate 5 Mg Tablet PO 5 mg DAILY BARRY Administration Aspirin 81 mg 10/03/20 08:00 10/07/20 07:55 Aspirin 81 Mg Chewable Tablet PO 81 mg DAILY@0800 BARRY Administration Budesonide/Formoterol Fumarate 2 puff 10/02/20 20:00 10/07/20 09:34 Budesonide/Form 160-4.5 Mcg (*Sp) INHALATION 2 puff Q12HRT BARRY Administration Calcium Carbonate 1 tablet 10/03/20 09:00 10/07/20 07:55 Calcium/Vitamin D 250 Mg Tablet PO 1 tablet QAM BARRY Administration Ipratropium [place] 0.5 mg 10/02/20 14:06 Ipratropium Br 0.02% Inh Soln 0.5 Mg/2.5 Ml Vial INHALATION QID PRN Shortness Of Breath Multi-Ingred Cream/Lotion/Oil/Oint 1 applic 10/03/20 08:46 Mineral Oil/Petrolatum,White 1 Applic EACH EYE Q8H PRN Dry Eye(s) Multivitamins Therapeutic 1 tablet 10/03/20 09:00 10/07/20 07:55 Multivitamins Therapeutic Tab (*Bkc) PO 1 tablet DAILY BARRY Administration Pantoprazole Sodium 40 mg 10/03/20 09:00 10/07/20 07:55 Pantoprazole 40 Mg Tablet PO 40 mg QAM BARRY Administration Simvastatin 10 mg 10/02/20 21:00 10/06/20 20:32 Simvastatin 10 Mg Tablet PO 10 mg HS BARRY Administration Sodium Chloride 1 spray 10/02/20 13:30 Saline 0.65% Nic Soln 44 Ml Btl NASAL Q1H PRN Dry Nasal Passages Labs Labs: Laboratory Results - last 24 hr 10/07/20 08:27 WBC 5.6 RBC 2.62 L Hgb 8.3 L Hc
[2020-10-07 14:00] VITALS: BP 135/65; PULSE 112; RESP 18; TEMP 36.8; O2SAT 98
[2020-10-07 19:53] VITALS: O2SAT 98
[2020-10-07] MEDS: SIMVASTATIN 10 MG TABLET PO (20:27)
[2020-10-07 22:00] VITALS: BP 149/66; PULSE 82; RESP 16; TEMP 36.5; O2SAT 97
[2020-10-08] MEDS: ACETAMINOPHEN 500 MG TABLET PO ×6 (02:05→20:20)
[2020-10-08 06:00] VITALS: BP 150/62; PULSE 89; RESP 18; TEMP 36.4; O2SAT 98
[2020-10-08] MEDS: CALCIUM/VITAMIN D 250 MG TABLET 1 TABLET PO (08:16)
[2020-10-08] MEDS: amLODIPine BESYLATE 5 MG TABLET PO (08:16)
[2020-10-08] MEDS: ASPIRIN 81 MG CHEWABLE TABLET PO (08:16)
[2020-10-08] MEDS: MULTIVITAMINS THERAPEUTIC TAB (*BKC) 1 TABLET PO (08:16)
[2020-10-08] MEDS: PANTOPRAZOLE 40 MG TABLET PO (08:16)
[2020-10-08 14:00] VITALS: BP 137/58; PULSE 87; RESP 20; TEMP 36.7; O2SAT 96
[2020-10-08 19:50] VITALS: PULSE 87; RESP 20; O2SAT 96
[2020-10-08] MEDS: SIMVASTATIN 10 MG TABLET PO (20:20)
[2020-10-08] MEDS: polyethylene glycoL 3350 17 GM POWD.PACK PO (20:20)
[2020-10-08 22:00] VITALS: BP 143/53; PULSE 76; RESP 20; TEMP 36.6; O2SAT 96
[2020-10-09] MEDS: ACETAMINOPHEN 500 MG TABLET PO ×6 (02:03→20:16)
[2020-10-09 06:00] VITALS: BP 136/69; PULSE 110; RESP 16; TEMP 36.4; O2SAT 96
[2020-10-09 08:00] VITALS: PULSE 110; RESP 16; O2SAT 96
[2020-10-09] MEDS: PANTOPRAZOLE 40 MG TABLET PO (08:32)
[2020-10-09] MEDS: amLODIPine BESYLATE 5 MG TABLET PO (08:32)
[2020-10-09] MEDS: CALCIUM/VITAMIN D 250 MG TABLET 1 TABLET PO (08:32)
[2020-10-09] MEDS: ASPIRIN 81 MG CHEWABLE TABLET PO (08:32)
[2020-10-09] MEDS: MAGNESIUM HYDROXIDE SUSP 30 ML UDC PO (08:33)
[2020-10-09] MEDS: MULTIVITAMINS THERAPEUTIC TAB (*BKC) 1 TABLET PO (08:33)
--- NOTE | 2020-10-09 11:34 | WPDNEURORHBP ---
Subjective Date/time seen: 10/09/20 11:34 70 years old lady has been admitted to the rehab floor on transfer from the [facility] for the diagnosis of right middle cerebral artery aneurysm multiple comorbid conditions she has been involved in the physical therapy on occupational therapy and has no specific complaints on today's visit, no new lab Review of Systems Review of Systems: All systems reviewed & are unremarkable except as noted in HPI and below Functional Status Ambulation Ability Ability to Ambulate 10 Feet: Independent Ability to Ambulate 50 Feet With 2 Turns: Independent Ability to Ambulate 150 Feet: Independent Ambulation Assistive Devices: None and Walker, Wheeled Transfers Ability Ability to Transfer In/Out of Chair: Independent Exam Narrative: Exam Narrative: on examination she is awake alert cooperative speech is not dysphasic no dysarthric not dysphonic pupils round regular reacting to light equally extraocular movements are full with no nystagmus facial sensation intact facial grimace symmetrical tongue in the midline motor examination reveals her to have a very subtle drift of the left upper extremity against gravity reflexes are symmetrical plantars are downgoing heart regular lungs clear abdomen is soft nontender Objective Data Vital Signs Vital Signs: Vital Signs - 24 hr 10/08/20 14:00 10/08/20 19:50 10/08/20 22:00 Temperature 36.7 C 36.6 C Pulse Rate 87 87 76 Respiratory Rate 20 20 20 Blood Pressure 137/58 L 143/53 H Pulse Oximetry 96 96 96 10/09/20 06:00 10/09/20 08:00 Temperature 36.4 C Pulse Rate 110 H 110 H Respiratory Rate 16 16 Blood Pressure 136/69 Pulse Oximetry 96 96 Intake/Output Intake/Output: Intake & Output 10/06/20 10/07/20 10/08/20 10/09/20 23:59 23:59 23:59 23:59 Intake Total 840 720 960 240 Balance 840 720 960 240 Meds/Results Medications: Active Medications Generic Name Dose Route Start Last Admin Trade Name Freq PRN Reason Stop Dose Admin Acetaminophen 500 mg 10/02/20 18:00 10/09/20 10:30 Acetaminophen 500 Mg Tablet PO 500 mg Q4H BARRY Administration Acetylcysteine 600 mg 10/02/20 14:37 Acetylcysteine 20% Inhal Soln 800 Mg/4 Ml Vial INHALATION DAILY PRN Secretions Albuterol 2.5 mg 10/02/20 14:06 Albuterol Sulfate Neb 2.5 Mg/0.5 Ml Inh INHALATION QID PRN Shortness Of Breath Amlodipine Besylate 5 mg 10/03/20 09:00 10/09/20 08:32 Amlodipine Besylate 5 Mg Tablet PO 5 mg DAILY BARRY Administration Aspirin 81 mg 10/03/20 08:00 10/09/20 08:32 Aspirin 81 Mg Chewable Tablet PO 81 mg DAILY@0800 BARRY Administration Calcium Carbonate 1 tablet 10/03/20 09:00 10/09/20 08:32 Calcium/Vitamin D 250 Mg Tablet PO 1 tablet QAM BARRY Administration Ipratropium [place] 0.5 mg 10/02/20 14:06 Ipratropium Br 0.02% Inh Soln 0.5 Mg/2.5 Ml Vial INHALATION QID PRN Shortness Of Breath Magnesium Hydroxide 30 ml 10/09/20 09:00 10/09/20 08:33 Magnesium Hydroxide Susp 30 Ml Udc PO 30 ml QAM BARRY Administration Multi-Ingred Cream/Lotion/Oil/Oint 1 applic 10/03/20 08:46 Mineral Oil/Petrolatum,White 1 Applic EACH EYE Q8H PRN Dry Eye(s) Multivitamins Therapeutic 1 tablet 10/03/20 09:00 10/09/20 08:33 Multivitamins Therapeutic Tab (*Bkc) PO 1 tablet DAILY BARRY Administration Pantoprazole Sodium 40 mg 10/03/20 09:00 10/09/20 08:32 Pantoprazole 40 Mg Tablet PO 40 mg QAM BARRY Administration Polyethylene Glycol 17 gm 10/08/20 21:00 10/08/20 20:20 Polyethylene Glycol 3350 17 Gm Powd.Pack PO 17 gm HS BARRY Administration Simvastatin 10 mg 10/02/20 21:00 10/08/20 20:20 Simvastatin 10 Mg Tablet PO 10 mg HS BARRY Administration Sodium Chloride 1 spray 10/02/20 13:30 Saline 0.65% Nic Soln 44 Ml Btl NASAL Q1H PRN Dry Nasal Passages Progress Note: A&P Assessment and Plan (1) Aneurysm: Code(s): I72.9 - Aneurysm of
[2020-10-09 14:00] VITALS: BP 124/66; PULSE 84; RESP 20; TEMP 36.5; O2SAT 95
[2020-10-09] MEDS: LACTULOSE 20 GM/30 ML UDC 30 GM PO (17:49)
[2020-10-09] MEDS: polyethylene glycoL 3350 17 GM POWD.PACK PO (20:16)
[2020-10-09] MEDS: SIMVASTATIN 10 MG TABLET PO (20:16)
[2020-10-09 22:00] VITALS: BP 148/60; PULSE 86; RESP 16; TEMP 36.4; O2SAT 97
[2020-10-10] MEDS: ACETAMINOPHEN 500 MG TABLET PO ×6 (00:39→22:05)
[2020-10-10 04:55] LABS: Basophils Absolute Auto 0.1 K/mm3 (0.0-0.1); Basophils Percent Auto 1.1 % (0.2-1.2); Eosinophils Absolute Auto 0.2 K/mm3 (0-0.3); Eosinophils Percent Auto 4.5 % (0-4.4); Hematocrit 26.1 % (37.0-47.0); Hemoglobin 8.3 g/dL (12.0-15.0); Immature Granulocyte Absolute 0.02 K/mm3 (0.00-0.031); Immature Granulocyte Percent A 0.4 % (0-0.5); Lymphocytes Absolute Auto 1.04 K/mm3 (0.9-3.2); Lymphocytes Percent Auto 22.4 % (18.3-44.2); Mean Corpuscular HGB Conc 31.8 g/dl (32-36); Mean Corpuscular Hemoglobin 31.3 pg (26-34); Mean Corpuscular Volume 98.5 fl (80-100); Monocytes Absolute Auto 0.4 K/mm3 (0.1-0.6); Monocytes Percent Auto 9.5 % (2.6-8.5); Neutrophils Absolute Auto 2.9 K/mm3 (1.3-6.7); Neutrophils Percent Auto 62.1 % (45.5-73.1); Platelet Count Result 291 k/mm3 (150-375); Red Blood Count 2.65 M/mm3 (4.2-5.4); White Blood Count 4.6 K/mm3 (4.5-10.0)
[2020-10-10 05:10] LABS: Anion Gap 0 mmol/L (8-16); Blood Urea Nitrogen 17 mg/dL (7-17); Calcium 8.7 mg/dL (8.4-10.2); Carbon Dioxide 32 mmol/L (22-30); Chloride 108 mmol/L (98-107); Estimated CRCL calculation 55 ml/min; Estimated Glomerular Filt Rate > 60; Glucose 94 mg/dL (65-105); Potassium 3.9 mmol/L (3.4-5.0); Sodium 140 mmol/L (137-145)
[2020-10-10 06:00] VITALS: BP 149/81; PULSE 85; RESP 16; TEMP 36.4; O2SAT 96
[2020-10-10] MEDS: amLODIPine BESYLATE 5 MG TABLET PO (09:09)
[2020-10-10] MEDS: MAGNESIUM HYDROXIDE SUSP 30 ML UDC PO (09:09)
[2020-10-10] MEDS: MULTIVITAMINS THERAPEUTIC TAB (*BKC) 1 TABLET PO (09:09)
[2020-10-10] MEDS: PANTOPRAZOLE 40 MG TABLET PO (09:09)
[2020-10-10] MEDS: CALCIUM/VITAMIN D 250 MG TABLET 1 TABLET PO (09:09)
[2020-10-10] MEDS: ASPIRIN 81 MG CHEWABLE TABLET PO (09:09)
--- NOTE | 2020-10-10 12:22 | PCDIET ---
Nutrition Follow-Up Complete: Nutrition Diagnosis: Altered nutrition related laboratory values related to heart hx as evidenced by elevated TG/Chol labs. Nutrition Goal: Meet estimated nutritional needs Goal met. Patient consuming 75-100% of meals on regular diet and reports good appetite. Refused education, as does not feel will be able to modify the way he cooks. Reviewed importance of controlling blood pressure and cholesterol levels in reducing CVA risk and taking medications as prescribed. Patient acknowledges she needs to try harder with taking medications on time. Suggested setting alarm on phone. Recommend adding heart healthy diet. Last recorded weight is 71 kg. Recommend obtaining new weight. Bowel Motility: Last documented BM on 10/05/20. Labs Reviewed: Hgb (8.3), Hct (26.1) Meds Noted: Albuterol, Norvasc, Oscal + D, Atrovent, Lactulose, MVI, Protonix, Miralax Additional Notes: Right frontal head incision. No documented pressure sores. Will continue to monitor with same goal. Nutrition Monitoring and Evaluation: Will monitor weekly.
[2020-10-10 14:00] VITALS: BP 135/48; PULSE 83; RESP 18; TEMP 36.6; O2SAT 98
[2020-10-10 19:43] VITALS: BP 134/54; PULSE 77; RESP 16; TEMP 36.9; O2SAT 98
[2020-10-10] MEDS: LACTULOSE 20 GM/30 ML UDC 30 GM PO (19:55)
[2020-10-10] MEDS: SIMVASTATIN 10 MG TABLET PO (19:57)
[2020-10-10] MEDS: polyethylene glycoL 3350 17 GM POWD.PACK PO (19:58)
[2020-10-11] MEDS: ACETAMINOPHEN 500 MG TABLET PO ×6 (02:11→21:40)
[2020-10-11 05:55] VITALS: BP 147/67; PULSE 78; RESP 16; TEMP 36.9; O2SAT 97
[2020-10-11] MEDS: CALCIUM/VITAMIN D 250 MG TABLET 1 TABLET PO (08:32)
[2020-10-11] MEDS: MULTIVITAMINS THERAPEUTIC TAB (*BKC) 1 TABLET PO (08:32)
[2020-10-11] MEDS: PANTOPRAZOLE 40 MG TABLET PO (08:32)
[2020-10-11] MEDS: amLODIPine BESYLATE 5 MG TABLET PO (08:32)
[2020-10-11] MEDS: ASPIRIN 81 MG CHEWABLE TABLET PO (08:32)
--- NOTE | 2020-10-11 12:23 | WPDNEURORHBP ---
Subjective Date/time seen: 10/11/20 12:23 70 years old lady has been admitted to the rehab floor on transfer from the [facility] for the diagnosis of right middle cerebral artery aneurysm with multiple comorbid conditions she has been involved in the physical therapy and occupational therapy and generally very comfortable very cooperative in very good mood has no specific complaints Review of Systems Review of Systems: All systems reviewed & are unremarkable except as noted in HPI and below Functional Status Ambulation Ability Ability to Ambulate 10 Feet: Independent Ability to Ambulate 50 Feet With 2 Turns: Independent Ability to Ambulate 150 Feet: Independent Ambulation Assistive Devices: None and Walker, Wheeled Transfers Ability Ability to Transfer In/Out of Chair: Independent Exam Narrative: Exam Narrative: examination reveals her to be awake alert cooperative is speech is normal with no dysphagia no dysarthria pupils round regular feels the vision full extraocular movements are full face symmetrical tongue midline motor examination reveals very subtle left upper extremity drift against gravity heart regular lungs clear abdomen is soft Objective Data Vital Signs Vital Signs: Vital Signs - 24 hr 10/10/20 14:00 10/10/20 19:43 10/11/20 05:55 Temperature 36.6 C 36.9 C 36.9 C Pulse Rate 83 77 78 Respiratory Rate 18 16 16 Blood Pressure 135/48 L 134/54 L 147/67 H Pulse Oximetry 98 98 97 Intake/Output Intake/Output: Intake & Output 10/08/20 10/09/20 10/10/20 10/11/20 23:59 23:59 23:59 23:59 Intake Total 960 740 960 480 Balance 960 740 960 480 Meds/Results Medications: Active Medications Generic Name Dose Route Start Last Admin Trade Name Freq PRN Reason Stop Dose Admin Acetaminophen 500 mg 10/02/20 18:00 10/11/20 11:16 Acetaminophen 500 Mg Tablet PO 500 mg Q4H BARRY Administration Acetylcysteine 600 mg 10/02/20 14:37 Acetylcysteine 20% Inhal Soln 800 Mg/4 Ml Vial INHALATION DAILY PRN Secretions Albuterol 2.5 mg 10/02/20 14:06 Albuterol Sulfate Neb 2.5 Mg/0.5 Ml Inh INHALATION QID PRN Shortness Of Breath Amlodipine Besylate 5 mg 10/03/20 09:00 10/11/20 08:32 Amlodipine Besylate 5 Mg Tablet PO 5 mg DAILY BARRY Administration Aspirin 81 mg 10/03/20 08:00 10/11/20 08:32 Aspirin 81 Mg Chewable Tablet PO 81 mg DAILY@0800 BARRY Administration Calcium Carbonate 1 tablet 10/03/20 09:00 10/11/20 08:32 Calcium/Vitamin D 250 Mg Tablet PO 1 tablet QAM BARRY Administration Ipratropium [place] 0.5 mg 10/02/20 14:06 Ipratropium Br 0.02% Inh Soln 0.5 Mg/2.5 Ml Vial INHALATION QID PRN Shortness Of Breath Lactulose 30 gm 10/09/20 21:00 10/10/20 19:55 Lactulose 20 Gm/30 Ml Udc PO 30 gm HS BARRY Administration Magnesium Hydroxide 30 ml 10/09/20 09:00 10/11/20 08:34 Magnesium Hydroxide Susp 30 Ml Udc PO Not Given QAM BARRY Multi-Ingred Cream/Lotion/Oil/Oint 1 applic 10/03/20 08:46 Mineral Oil/Petrolatum,White 1 Applic EACH EYE Q8H PRN Dry Eye(s) Multivitamins Therapeutic 1 tablet 10/03/20 09:00 10/11/20 08:32 Multivitamins Therapeutic Tab (*Bkc) PO 1 tablet DAILY BARRY Administration Pantoprazole Sodium 40 mg 10/03/20 09:00 10/11/20 08:32 Pantoprazole 40 Mg Tablet PO 40 mg QAM BARRY Administration Polyethylene Glycol 17 gm 10/08/20 21:00 10/10/20 19:58 Polyethylene Glycol 3350 17 Gm Powd.Pack PO 17 gm HS BARRY Administration Simvastatin 10 mg 10/02/20 21:00 10/10/20 19:57 Simvastatin 10 Mg Tablet PO 10 mg HS BARRY Administration Sodium Chloride 1 spray 10/02/20 13:30 Saline 0.65% Nic Soln 44 Ml Btl NASAL Q1H PRN Dry Nasal Passages Progress Note: A&P Assessment and Plan (1) Aneurysm: Code(s): I72.9 - Aneurysm of unspecified site Status: Acute (2) Headache: Code(s): R51.9 - Headache, unspecified
[2020-10-11 14:00] VITALS: BP 151/56; PULSE 92; RESP 20; TEMP 36.7; O2SAT 99
[2020-10-11 20:22] VITALS: BP 146/54; PULSE 88; RESP 18; TEMP 36.9; O2SAT 98
[2020-10-11] MEDS: SIMVASTATIN 10 MG TABLET PO (21:40)
[2020-10-12] MEDS: ACETAMINOPHEN 500 MG TABLET PO ×6 (01:30→21:44)
[2020-10-12 04:46] VITALS: BP 149/63; PULSE 84; RESP 20; TEMP 36.4; O2SAT 97
[2020-10-12] MEDS: amLODIPine BESYLATE 5 MG TABLET PO (08:23)
[2020-10-12] MEDS: ASPIRIN 81 MG CHEWABLE TABLET PO (08:23)
[2020-10-12] MEDS: MULTIVITAMINS THERAPEUTIC TAB (*BKC) 1 TABLET PO (08:24)
[2020-10-12] MEDS: CALCIUM/VITAMIN D 250 MG TABLET 1 TABLET PO (08:24)
[2020-10-12] MEDS: PANTOPRAZOLE 40 MG TABLET PO (08:24)
--- NOTE | 2020-10-12 09:00 | PC.NURSE ---
pt refused milk of magnesia this morning. pt states she did not need this morning. updated.
[2020-10-12 14:00] VITALS: BP 148/67; PULSE 80; RESP 20; TEMP 36.2; O2SAT 97
[2020-10-12 20:00] VITALS: PULSE 80; RESP 20; O2SAT 97
[2020-10-12] MEDS: SIMVASTATIN 10 MG TABLET PO (21:44)
[2020-10-12 22:00] VITALS: BP 142/63; PULSE 78; RESP 16; TEMP 36.5; O2SAT 96
[2020-10-13] MEDS: ACETAMINOPHEN 500 MG TABLET PO ×3 (02:08→09:02)
[2020-10-13 06:00] VITALS: BP 143/58; PULSE 74; RESP 18; TEMP 36.6; O2SAT 99
[2020-10-13] MEDS: amLODIPine BESYLATE 5 MG TABLET PO (09:02)
[2020-10-13] MEDS: ASPIRIN 81 MG CHEWABLE TABLET PO (09:02)
[2020-10-13] MEDS: PANTOPRAZOLE 40 MG TABLET PO (09:02)
[2020-10-13] MEDS: CALCIUM/VITAMIN D 250 MG TABLET 1 TABLET PO (09:02)
[2020-10-13] MEDS: MULTIVITAMINS THERAPEUTIC TAB (*BKC) 1 TABLET PO (09:03)
--- NOTE | 2020-10-17 12:12 | PM.DS ---
DS: Admitting Diagnosis Admitting Diagnosis Admitting Diagnosis: Right MCA Aneurysm ADMISSION [id number] years old admitted to the rehab floor of [facility] with primary rehab impairment category of brain dysfunction non traumatic in nature and with etiological diagnosis of right middle cerebral artery aneurysm in addition to the comorbid conditions of 1. Chronic obstructive pulmonary disease 2. Obstructive sleep apnea with no CPAP on 3. Hypertension 4. Hyperlipidemia 5. Macular degeneration 6. History of ruptured cavernoma 7. Right middle cerebral artery aneurysm 8. Recent subarachnoid hemorrhage with documented right middle cerebral artery aneurysm At the time of admission she was noted to require Eating independent Oral Care partial assistance Toileting Hygiene partial assistance Shower/Bathing partial assignment desk assistant Upper Body Dressing partial assignment desk assistant Lower Body Dressing partial assistance Donning/[place] Footwear supervision Rolling Left and Right supervision Sit to Lying partial assisted Lying to Sitting supervision Sit to Stand partial assisted Bed to Chair Transfers partial assignment desk assistant Toilet Transfers partial assisted Car Transfers partial assignment desk assistant Walking 10' partial assist Walking 50' with Two Turns partial assignment desk assistant Walking 150' unable Curb or Step partial assistance 4 Steps partial assisted 12 Steps unable Picking Up Object supervision [Wheelchair Mobility 50'] not applicable [Wheelchair Mobility 150'] not applicable GOALS: Eating [INDEPENDENT] Oral Care [INDEPENDENT] Toileting Hygiene [INDEPENDENT] Shower/Bathing set up Upper Body Dressing set up Lower Body Dressing set up Donning/[place] Footwear [INDEPENDENT] Rolling Left and Right [INDEPENDENT] Sit to Lying [INDEPENDENT] Lying to Sitting [INDEPENDENT] Sit to Stand [INDEPENDENT] Bed to Chair Transfers [INDEPENDENT] Toilet Transfers [INDEPENDENT] Car Transfers [INDEPENDENT] Walking 10' [INDEPENDENT] Walking 50' with Two Turns [INDEPENDENT] Walking 150' [INDEPENDENT] Curb or Step [INDEPENDENT] 4 Steps [INDEPENDENT] 12 Steps [INDEPENDENT] Picking Up Object [INDEPENDENT] [Wheelchair Mobility 50'] not applicable [Wheelchair Mobility 150'] not applicable DISCHARGE PERFORMANCE: Eating [INDEPENDENT] Oral Care [INDEPENDENT] Toileting Hygiene [INDEPENDENT] Shower/Bathing [INDEPENDENT] Upper Body Dressing [INDEPENDENT] Lower Body Dressing [INDEPENDENT] Donning/[place] Footwear [INDEPENDENT] Rolling Left and Right [INDEPENDENT] Sit to Lying [INDEPENDENT] Lying to Sitting [INDEPENDENT] Sit to Stand [INDEPENDENT] Bed to Chair Transfers [INDEPENDENT] Toilet Transfers [INDEPENDENT] Car Transfers [INDEPENDENT] Walking 10' [INDEPENDENT] Walking 50' with Two Turns [INDEPENDENT] Walking 150' [INDEPENDENT] Curb or Step [INDEPENDENT] 4 Steps [INDEPENDENT] 12 Steps [INDEPENDENT] Picking Up Object [INDEPENDENT] [Wheelchair Mobility 50' not applicable [Wheelchair Mobility 150 not applicable during the entire hospitalization patient had no falls and at the time of discharge her condition improved and she was discharged to home with outpatient therapy DS: Summary Time Spent with Patient Time attestation: Total time spent providing and/or coordinating discharge services: Discharge Plan Discharge Discharging Clinician: Joshua Dumont Patient Disposition: Home, Self-Care Activity: may shower, no driving and as tolerated Diet: as tolerated and regular Wound Care Instructions: incision open to air Discharge Instructions: No driving, no lifting greater than 20lbs, no bending at waist (squat using your legs) to mushroom picker things or use continuous conveyor screen drier, do not push or pull anything until follow-up with your doctor. No long car rides; if greater than 45 minutes need to pulley mortiser operator and walk for 15 minutes for every 45 minutes. Patient Instructions: Antibiotic Form, Heart Healthy Diet (DC) Stand Alone Forms: General Discharge Information Leilao
== END 2020-10-13 12:43 | disposition home or self-care (01) | DRG 949 ==
PROVIDERS: Admitting Provider Psychiatry & Neurology Neurology; PCP Internal Medicine; Visit Provider Psychiatry & Neurology Neurology
DX: Z48.811 Encounter for surgical aftercare following surgery on the nervous system (principal); I69.051 Hemiplegia and hemiparesis following nontraumatic subarachnoid hemorrhage affecting right dominant side; I72.8 Aneurysm of other specified arteries; R06.01 Orthopnea; R06.89 Other abnormalities of breathing; D64.9 Anemia, unspecified; E78.5 Hyperlipidemia, unspecified; F17.210 Nicotine dependence, cigarettes, uncomplicated; G47.33 Obstructive sleep apnea (adult) (pediatric); H35.30 Unspecified macular degeneration; I10 Essential (primary) hypertension; J43.9 Emphysema, unspecified; M54.9 Dorsalgia, unspecified; R68.84 Jaw pain; Z85.820 Personal history of malignant melanoma of skin
CPT/HCPCS: 36415; 80048; 80061; 85025; 94640; 97110; 97112; 97116; 97161; 97165; 97530; 97535; A9270; J1644

== ENCOUNTER 2020-11-24 08:30 | Outpatient (RCR) | payer MEDICARE, SELFPAY ==
--- NOTE | 2020-10-27 09:25 | PTOPEVAL ---
PHYSICAL THERAPY EVALUATION AND PLAN OF CARE Thank you for referring Miladis Galan to [facility].? The patient is scheduled to be seen for therapy?2x/week for 4 weeks. Please review, sign, date and return this plan of care MANN. I agree with and certify that the following plan of care is medically necessary. Referring Physician Date Attending Provider: Joshua Dumont MD Neurological History Hx Other Neurological Disorders Yes: brain bleed Cardiovascular History Hx Hypercholesterolemia Yes Hx Hypertension Yes HEENT History Hx Macular Degeneration Yes Other History Hx Cancer Yes: melanoma Evaluation Information Problem Diagnosis post brain surgery; anuerysm clipping Onset September 20, 2020 Subjective Information Surgery to clip a brain Query Text:As Reported By Patient/ anuerysm on 09/20/2020. States Family she feels good but weak and especially when trying to testing analyst one place for longer period of time and states that her legs feel weak and shaky. Typically walks without her cane at home, but did bring it to the clinic today. Prior Level of Function Home Setting Home Type House,Single Level Environmental Barriers Railing, Ascend Left,Stairs, Greater than 4 Living Situation With Spouse Mobility Assistive Devices (Used Last 3 None Months) Bathroom Environment Bathtub, Standard,Shower, Curtain Bathing Equipment Tub Transfer Bench Pain Score Pain Score 0: Self Report Lower Extremity Muscle Strength Testing Hip Strength Right Hip Flexion Strength 5 Normal Hip Extension Strength 3+ Fair + Hip Abduction Strength 3 Fair Left Hip Flexion Strength 4+ Good + Hip Extension Strength 3+ Fair + Hip Abduction Strength 3 Fair Knee Strength Right Knee Flexion Strength 4+ Good + Knee Extension Strength 4+ Good + Left Knee Flexion Strength 4 Good Knee Extension Strength 4 Good Muscle Length Testing Muscle Length Testing Left Hamstring Length -50 Query Text:(90 - 90 Position) Right Hamstring Length -55 Query Text:(90 - 90 Position) Posture Posture Standing Position Head/C-Spine Posture Neutral Position Shoulder Posture (L) Rounded,(R) Rounded,(L) Forward,(R) Forward,(L) Elevated,(R) Elevated
--- NOTE | 2020-10-27 10:14 | OTOPEVAL ---
OCCUPATIONAL THERAPY EVALUATION REPORT AND DISCHARGE SUMMARY 10/27/2020 Patient presents with intact and functional bilateral UE strength and coordination. She is independent with narrow gauge brakeman/pinch strengthening and fine motor HEP to continue to fine-tune minimal residual deficits. No care plan initiated. discharging from OT with patient independent with HEP. Thank you for referring Miladis Galan to [facility].? Please review, sign, date and return this Discharge Summary MANN. I agree with and certify that the following plan of care is medically necessary. Referring Physician Date Referring Provider: Joshua Dumont MD *OT Outpatient Evaluation Start: 10/27/20 09:08 Therapy Assessment Status Assessment Status Assessment Status Evaluation Outpatient Past Medical History Neurological History Hx Other Neurological Disorders Yes: brain bleed Cardiovascular History Hx Hypercholesterolemia Yes Hx Hypertension Yes HEENT History Hx Macular Degeneration Yes Other History Hx Cancer Yes: melanoma Evaluation Information Problem Diagnosis Brain aneurysm s/p clipping Onset 09/20/20 Subjective Information Miladis reports that after Query Text:As Reported By Patient/ surgery she spent 2 weeks in Family acute care then 10 days in acute rehab before returning home with her . She states she has returned to being independent with ADLs, noting biggest deficits with strength and endurance. She is not back to all household tasks such as dishes, cleaning , and laundry. did all cooking prior. Has theraband and theraputty from inpatient rehab. Prior Level of Function Activity Level (Last 3 Months) Occupation Retired Hand Dominance Right Activity of Daily Living Ability Independent Indoor/Home Mobility Independent Home Setting Home Type House Environmental Barriers Stairs, Greater than 4,Stairs, Threshold Living Situation With Spouse Mobility Assistive Devices (Used Last 3 None,Cane Months) Bathroom Environment Tub/Shower, Curtain Bathing Equipment Tub Rail,Tub Seat With Back Toileting Equipment Tall Toilet Comments Additional Prior Level of Function Patient states her laundry is Comments in the basement and she has not gone into the basement since returning home. Pain Assessment
--- NOTE | 2020-11-24 09:09 | PTOPEVAL ---
PHYSICAL THERAPY DISCHARGE NOTE Thank you for referring Miladis Galan to [facility]. Please review, sign, date and return this plan of care MANN. I agree with and certify that the following plan of care is medically necessary. Referring Physician Date Attending Provider: Joshua Dumont MD Discharge Diagnosis Brain aneursym s/p clipping Onset 09/20/20 Subjective Information Miladis reports that after Query Text:As Reported By Patient/ surgery she spent 2 weeks in Family acute care then 10 days in acute rehab before returning home with her . Miladis reports today that she feels like she is doing better but she can tell that her endurance is not what she wants it to be and she wants her balance to be better. Talking about going to a gym to walk or to go to a pool and walk in the pool. Pain Assessment Timing of Pain Assessment Timing of Pain Assessment Pre-Treatment Self Report Self Report Pain Level 0 Pain Score Pain Score 0: Self Report Lower Extremity Muscle Strength Testing Hip Strength Right Hip Flexion Strength 5 Normal Hip Extension Strength 4 Good Hip Abduction Strength 4 Good Left Hip Flexion Strength 5 Normal Hip Extension Strength 4 Good Hip Abduction Strength 4 Good Knee Strength Right Knee Flexion Strength 5 Normal Knee Extension Strength 5 Normal Left Knee Flexion Strength 5 Normal Knee Extension Strength 5 Normal Muscle Length Testing Muscle Length Testing Left Hamstring Length -35 Query Text:(90 - 90 Position) Right Hamstring Length -35 Query Text:(90 - 90 Position) Posture Posture Standing Position Head/C-Spine Posture Neutral Position Shoulder Posture (L) Rounded,(R) Rounded,(L) Forward,(R) Forward,(L) Elevated,(R) Elevated Arm Posture (L) Internally Rotated,(R) Internally Rotated Balance Assessment Stark Balance Assessment Sitting to Standing Independent w/out Hands Unsupported Stance Ability Safely- 2 minutes Sitting Unsupported, Feet on Floor Safely- 2 minutes Standing to Sitting Safely, Minimal Hand Use Transfer Ability Safely, Minimal Hand Use Unsupported Stance- Eyes Closed Safely, 10 seconds Unsupported Stance- Feet Together Independent, 1 minute
== END 2020-11-26 12:01 | disposition home or self-care (01) ==
LOC: ANHPT 08:30
PROVIDERS: PCP Internal Medicine; Visit Provider Psychiatry & Neurology Neurology
DX: I72.9 Aneurysm of unspecified site (principal)
CPT/HCPCS: 97110; 97162; 97165

== ENCOUNTER → 2021-09-05 01:16 | Outpatient (CLI) | payer MEDICARE, SELFPAY ==
[2021-09-05 17:04] LABS: SARS-CoV-2 RNA PCR Negative
== END ==
PROVIDERS: PCP Internal Medicine; Visit Provider Internal Medicine
DX: R05.9 Cough, unspecified (principal); Z20.822 Contact with and (suspected) exposure to COVID-19
CPT/HCPCS: C9803; U0003; U0005

== ENCOUNTER 2022-08-30 08:07 | Outpatient (CLI) | payer MEDICARE, SELFPAY ==
--- NOTE | ~2022-08-30 | MM_ITS ---
EXAMINATION: MM screening natalya BI w serene HISTORY: Screening TECHNIQUE: Craniocaudal and mediolateral oblique 3-D tomosynthesis images were obtained and synthetic 2-D images were generated. CAD analysis was submitted and interpreted. COMPARISON: Comparison to multiple prior studies sequentially, with oldest reviewed study dated 01/08. BREAST PARENCHYMAL COMPOSITION: The breasts are heterogeneously dense, which may obscure small masses . FINDINGS: There is no evidence of suspicious mass, calcification, or architectural distortion to sugg est malignancy in either breast. There has been no suspicious interval change. IMPRESSION: 1. No mammographic evidence of malignancy. 2. Recommend routine screening mammography in one year. BI-RADS Category 1: Negative Reviewed, dictated and finalized at location A.
== END 2022-08-30 08:08 | disposition home or self-care (01) ==
LOC: ANHIMG 08:11
PROVIDERS: PCP Internal Medicine; Visit Provider Obstetrics & Gynecology
DX: Z12.31 Encounter for screening mammogram for malignant neoplasm of breast (principal)
CPT/HCPCS: 77063; 77067

== ENCOUNTER 2024-02-21 08:05 | Outpatient (CLI) | payer MEDICARE, SELFPAY ==
--- NOTE | ~2024-02-21 | MM_ITS ---
EXAMINATION: MM screening natalya BI w serene HISTORY: Screening TECHNIQUE: Craniocaudal and mediolateral oblique 3-D tomosynthesis images were obtained and synthetic 2-D images were generated. CAD analysis was submitted and interpreted. COMPARISON: Comparison to multiple prior studies sequentially, with oldest reviewed study dated 03/2020. BREAST PARENCHYMAL COMPOSITION: Not dense: There are scattered areas of fibroglandular density. FINDINGS: There is no evidence of suspicious mass, calcification, or architectural distortion to sugg est malignancy in either breast. There has been no suspicious interval change. IMPRESSION: 1. No mammographic evidence of malignancy. 2. Recommend routine screening mammography in one year. BI-RADS Category 1: Negative Reviewed, dictated and finalized at location A.
== END 2024-02-21 08:06 | disposition home or self-care (01) ==
PROVIDERS: PCP Internal Medicine; Visit Provider Obstetrics & Gynecology
DX: Z12.31 Encounter for screening mammogram for malignant neoplasm of breast (principal)
CPT/HCPCS: 77063; 77067

== ENCOUNTER 2025-05-02 14:26 | Outpatient (CLI) | payer MEDICARE, SELFPAY ==
--- NOTE | ~2025-05-02 | MM_ITS ---
EXAMINATION: MM screening natalya BI w serene HISTORY: Screening TECHNIQUE: Craniocaudal and mediolateral oblique 3-D tomosynthesis images were obtained and synthetic 2-D images were generated. CAD analysis was submitted and interpreted. COMPARISON: Comparison to multiple prior studies sequentially, with oldest reviewed study dated 07/2017. BREAST PARENCHYMAL COMPOSITION: Dense: The breasts are heterogeneously dense, which may obscure small masses FINDINGS: There is no evidence of suspicious mass, calcification, or architectural distortion to sugg est malignancy in either breast. There has been no suspicious interval change. IMPRESSION: 1. No mammographic evidence of malignancy. 2. Recommend routine screening mammography in one year. BI-RADS Category 1: Negative Reviewed, dictated and finalized at location B.
--- OUTSIDE RECORDS SUMMARY | 2025-05-02 15:08 | XMS_ITS | Encounter Summary ---
Author Organization [facility] Address [address] [place] [address] Care Team Providers Care Universal Branch Consultant Name Role Phone Romain Chaney Emily CALDERA Primary Care Provider [phone] Mingo Dotson MD Primary Care Provider [phone] Encounter Details Date Type Department Care Team (Late st Contact Info) Description 08/22/2020 Lab Requisition 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 Gender Identity Not on file Sexual Orientation Not on file documented as of this encounter Plan of Treatment Not on file documented as of this encounter Procedures Procedure Name Priority Date/Time Associated Diagnosis Comments DERMATOPATHOLOGY Routine 08/21/2020 12:0 0 AM CDT documented in this encounter Results * DERMATOPATHOLOGY (08/21/2020 12:00 AM CDT) Case Report Dermatopathology Report Case: [id number] Authorizing Provider: Andrew Uriarte MD Collected: 08/21/2020 12:00 AM Ordering Location: [facility] Derm[facility] Lab Received: 08/22/2020 09:22 AM Pathologist: Louise Parekh MD Specimen: Skin, right distal FA 0 1:47 PM CDT DERMATOPATHOLOGY LABORATORY Final Diagnosis Specimen A. SKIN, right distal FA: DERMAL SCAR RESIDUAL SQUAMOUS CELL CARCINOMA NOT IDENTIFIED (L90.5) 0 1:47 PM CDT DERMATOPATHOLOGY LABORATORY at 1347 CDT Clinical History [facility]. Path # [id number]. 0 1:47 PM CDT DERMATOPATHOLOGY LABORATORY Gross Description Specimen A: Received is one formalin filled container labeled with the patient's name and designated right distal FA. The specimen consists of a non-oriented ellipse of skin measuring [id number]. The epidermal surface is unremarkable. The margin is inked green. The 12 o'clock and 6 o'clock tips are submitted in cassette 1. The remainder of the ellipse is serially sectioned and submitted in cassettes 2-3. Jar 0. 0 1:47 PM CDT DERMATOPATHOLOGY LABORATORY Microscopic Description Specimen A. SKIN, right distal FA: There are fibroblasts and collagen bundles oriented parallel to the skin surface. There are elongated blood vessels, some of which are oriented perpendicular to the skin surface. No residual squamous cell carcinoma is identified. 0 1:47 PM CDT DERMATOPATHOLOGY LABORATORY Disclaimer An external and internal positive and negative controls are appropriate for the histochemical, immunohistochemical and immunofluorescence stain(s) in this case (if any), except where stated explicitly. The performance characteristics of the stain(s) cited in this report were developed and its performance characteristic determined by the Dermatopathology Laboratory at [facility], directed by Dr. Aníbal Sierra. These tests need not be, and therefore are not, approved by the [place] Food and Drug Administration. The tests are used for clinical purposes. Billing Codes Specimen Charges Stain Charges 65889 1 0 1:47 PM CDT DERMATOPATHOLOGY LABORATORY Embedded Images 0 1:47 PM CDT DERMATOPATHOLOGY LABORATORY Pathology/Cytolog y TISSUE SPECIMEN FROM SKIN / Unknown 08/21/2020 08/22/2020 9:22 AM CDT us Andrew Uriarte MD LAB - PATHOLOGY/CYTOLOGY ORDER JACEK Final Result DERMATOPATHOLOGY LABORATORY [facility] - Department of Dermatology [facility] Medicine [address] [place] [address], [address] [phone] documented in this encounter Visit Diagnoses Not on filedocumented in this encounter Care Teams Universal Branch Consultant Relationship Specialty Start Date End Date Romain Chaney DO [address] [place], [place] [id number] PCP - General 02/03/11 12/29/20 Mingo Dotson MD [address] [place] [id number] PCP - General 12/30/20 documented as of this encounter
--- OUTSIDE RECORDS SUMMARY | 2025-05-02 15:08 | XMS_ITS | Encounter Summary ---
Author Organization [facility] Address [address] [place] [address] Care Team Providers Care Hot Pipe Gauger Name Role Phone Romain Chaney Emily CALDERA Primary Care Provider [phone] Mingo Dotson MD Primary Care Provider [phone] Encounter Details Date Type Department Care Team (Late st Contact Info) Description 06/03/2020 Lab Requisition [facility] Care DermPath Lab [address] [facility], [place] [phone] Andrew Uriarte MD [address] [place] [address] Social History Tobacco Use Types Packs/Day Years Used Date Smoking Tobacco: Former Cigarettes Q uit: 08/09/2014 Smokeless Tobacco: Never Alcohol Use Standard Drinks/Week Comments Yes 12.5 (1 standard drink = 0.6 oz pure alcohol) Comments Unknown Sex and Gender Information Value Date Recorded Sex Assigned at Not on file Legal Sex Female 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 Gender Identity Not on file Sexual Orientation Not on file documented as of this encounter Plan of Treatment Not on file documented as of this encounter Procedures Procedure Name Priority Date/Time Associated Diagnosis Comments DERMATOPATHOLOGY Routine 06/02/2020 12:0 0 AM CDT documented in this encounter Results * DERMATOPATHOLOGY (06/02/2020 12:00 AM CDT) Case Report Dermatopathology Report Case: [id number] Authorizing Provider: Andrew Uriarte MD Collected: 06/02/2020 12:00 AM Ordering Location: [facility] DermPath Lab Received: 06/03/2020 06:57 AM Pathologist: Louise Parekh MD Specimens: A) - Skin, right proximal FA B) - Skin, left deltoid 0 4:04 PM CDT DERMATOPATHOLOGY LABORATORY Final Diagnosis Specimen A. 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 SKIN, left deltoid: SQUAMOUS CELL CARCINOMA IN SITU (HERNANDEZ'S DISEASE), PIGMENTED (D04.5) 0 4:04 PM CDT DERMATOPATHOLOGY LABORATORY at 1604 CDT Clinical History A: BCC vs SCC. Path# [id number] B: [place] vs LM. Path# [id number] 0 4:04 PM CDT DERMATOPATHOLOGY LABORATORY Gross Description Specimen A: Received is one formalin filled container labeled with the patient's name and designated right proximal FA. The specimen consists of a shave biopsy measuring 7x6x1 mm. Jar 0. Specimen B: Received is one formalin filled container labeled with the patient's name and designated left deltoid. The specimen consists of a shave biopsy measuring 7x6x1 mm. Jar 0. 0 4:04 PM CDT DERMATOPATHOLOGY LABORATORY Microscopic Description Specimen A. SKIN, right proximal FA: The epidermis shows parakeratosis, full thickness disorderly maturation of keratinocytes, mitoses at different levels, and dyskeratotic cells. Specimen B. SKIN, left deltoid: The epidermis shows parakeratosis, full thickness disorderly maturation of keratinocytes, mitoses at different levels, and dyskeratotic cells. Mib-1 stain reveals proliferating keratinocytes at all levels of the epidermis. There is prominent pigmentation in some of the keratinocytes. 0 4:04 PM CDT DERMATOPATHOLOGY LABORATORY Disclaimer An external and internal positive and negative controls are appropriate for the histochemical, immunohistochemical and immunofluorescence stain(s) in this case (if any), except where stated explicitly. The performance characteristics of the stain(s) cited in this report were developed and its performance characteristic determined by the Dermatopathology Laboratory at [facility], directed by Dr. Aníbal Sierra. These tests need not be, and therefore are not, approved by the [place] Food and Drug Administration. The tests are used for clinical purposes. Billing Codes Specimen Charges Stain Charges 90085 26693 1 1 97396 1 0 4:04 PM CDT DERMATOPATHOLOGY LABORATORY Embedded Images 0 4:04 PM CDT DERMATOPATHOLOGY LABORATORY Pathology/Cytology TISSUE SPECIMEN FROM SKIN / Unknown 06/02/2020 06/03/2020 6:57 AM CDT Miscellaneous samples (specimen) TISSUE SPECIMEN FROM SKIN / Unknown 06/02/2020 06/03/2020 6:57 AM CDT us Andrew Uriarte MD LAB - PATHOLOGY/CYTOLOGY ORDER JACEK Final Result Performing Organization Address City/State/[facility] Co de Phone Number DERMATOPATHOLOGY LABORATORY [facility] - Department of Dermatology [employer] [place]/[address] [phone] documented in this encounter Visit Diagnoses Not on filedocumented in this encounter Care Teams Hot Pipe Gauger Relationship Specialty Start Date End Date Romain Chaney DO [address] [facility] [place], [place] [address] PCP - General 02/03/11 12/29/20 Mingo Dotson MD [address] [place] [id number] PCP - General 12/30/20 documented as of this encounter
--- OUTSIDE RECORDS SUMMARY | 2025-05-02 15:08 | XMS_ITS | Clinical Summary ---
Author Organization [facility] Address [address], [address] [address] Phone Care Team Providers Care In Mold Coater Name Role Phone Romain Cahney Emily CALDERA Primary Care Provider Kenton Kenyon Trae CALDERA Unavailable [phone] Allergies Active Allergy Reactions Criticality Noted Date Comments Sulfa Antibiotics Unknown 07/12/2016 Medications amLODIPine (NORVASC) 5 MG Tablet Take 5 mg by mouth daily. Active rosuvastatin (CRESTOR) 5 MG Tablet Take 5 mg by mouth daily. Active Calcium Carb-Cholecalcif sara (CALCIUM 600 + D PO) Take by mouth daily. Active Multiple Vitamins-Mineral s (MULTIVITAMIN PO) Take by mouth daily. Active Krill Oil [place]-3 300 MG Capsule Take by mouth daily. Active Multiple Vitamins-Mineral s (PRESERVISION AREDS 2 PO) Take by mouth 2 times daily. Active Immunizations Immunization Administration Dates Next Due Covid-19, Mrna, Lnp-s, Pf, 30 Mcg/0.3 Ml Dose ([place]) 02/11/2021,01/14/2021 Family History Medical History Relation Name Comments Alzheimer's Disease Father Bladder cancer Father Breast Cancer Mother Cancer Mother bone cancer Hypertension Mother Lung Cancer Mother Cancer Sister mouth cancer Hypertension Sister Relation Name Status Comments Father Mother Sister Social History Tobacco Use Types Packs/Day Years Used Date Smoking Tobacco: Every Day Cigarettes 1 40 Smokeless Tobacco: Never Alcohol Use Standard Drinks/Week Comments Yes 0 (1 standard drink = 0.6 oz pur e alcohol) Comments Unknown Sex and Gender Information Value Date Recorded Sex Assigned at Not on file Legal Sex Female 7:51 PM CDT Gender Identity Not on file Sexual Orientation Not on file Plan of Treatment Health Maintenance Due Date Last Done Comments DEXA Bone Density 1950 Hepatitis C Virus (HCV) Screening 1950 Mammogram 1990 Cologuard 2000 Immunochemical Fecal Occult Blood 2000 Zoster Immunization (1 of 2) 2000 Colonoscopy 07/08/2021 07/08/2016 Colorectal Cancer Screening 07/08/2021 Influenza Immunization (#1) 2024 09/0 07/2020, 09/11/2019, 10/19/2018, Additional history exists SARS-COV-2 Immunization ( season) 2024 08/20/2021, 02/11/2021, 01/14/2021, Additional history exists Respiratory Syncytial Virus (RSV) Immunization (Adult) (1 - 1-dose 75+ series) 2025 Pneumococcal Immunization (50+ years) Completed 11/08/2018, 11/04/2017 Pneumococcal Immunization Combined Discontinued 11/08/2018, 11/04/2017 DTaP/Tdap/Td Immunization Discontinued 12/25/2020, TdaP Immunization Completed 12/25/2020, 06/17/2016 Hepatitis B Immunization Aged Out No longer eligible based on patient's age to complete this topic Meningococcal Immunization (ACWY) Aged Out No longer eligible based on patient's age to complete this topic Rotavirus Immunization Aged Out No lo nger eligible based on patient's age to complete this topic Procedures Procedure Name Priority Date/Time Associated Diagnosis Comments COLONOSCOPY Routine 07/08/2016 from Last 3 Months or Most Recently Relevant to Health Maintenance Results * COLONOSCOPY (07/08/2016) Romain Chaney DO PROCEDURE/MINOR SURGICAL OR DERABLES Final Result from Last 3 Months or Most Recently Relevant to Health Maintenance Insurance MEDICARE Care Teams In Mold Coater Relationship Specialty Start Date End Date Romain Chaney DO [address] [place] [address] PCP - General Internal Medicine 07/14/16 Kenyon Fung DO [address] [place] [address] Gastroenterology 07/14/16
--- OUTSIDE RECORDS SUMMARY | 2025-05-02 15:08 | XMS_ITS | Encounter Summary ---
Author Organization [facility] Address [address] [place] [address] Care Team Providers Care Pneumatic Deicer Inspector Name Role Phone Mingo Dotson MD Primary Care Provider [phone] Encounter Details Date Type Department Care Team (Late st Contact Info) Description 06/16/2021 Lab Requisition [facility] Care DermPath Lab [address] [facility] [place] [phone] Andrew Uriarte MD [address] [facility] [place] [address] Social History Tobacco Use Types Packs/Day Years Used Date Smoking Tobacco: Every Day Cigarettes Smokeless Tobacco: Never Alcohol Use Standard Drinks/Week Comments Yes 12.5 (1 standard drink = 0.6 oz pure alcohol) 1 Vodka tonic everyday Comments Unknown Sex and Gender Information Value Date Recorded Sex Assigned at Not on file 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 Answer Date of Assessment Author No 09/17/2020 5:15 AM Chrissie Moses RN * Is person blind or have serious difficulty seeing? Answer Date of Assessment Author No 09/17/2020 5:15 AM Chrissie Moses RN * Does person have serious difficulty walking/climbing stairs? Answer Date of Assessment Author No 09/17/2020 5:15 AM Chrissie Moses RN * Does person have difficulty dressing/bathing? Answer Date of Assessment Author No 09/17/2020 5:15 AM CDT Chrissie Stuart RN * Does person have difficulty doing errands alone? Answer Date of Assessment Author No 09/17/2020 5:15 AM CDT Chrissie Stuart RN documented as of this encounter Mental Status * Does person have difficulty concentrating/remembering/making decisions? Answer Entry Date Author No 09/17/2020 5:15 AM CDT Chrissie Stuart RN documented in this encounter Plan of Treatment Not on file documented as of this encounter Procedures Procedure Name Priority Date/Time Associated Diagnosis Comments DERMATOPATHOLOGY Routine 06/15/2021 3:33 AM CDT documented in this encounter Results * DERMATOPATHOLOGY (06/15/2021 3:33 AM CDT) Case Report Dermatopathology Report Case: [id number] Authorizing Provider: Andrew Uriarte MD Collected: 06/15/2021 03:33 AM Ordering Location: [facility] DermPath Lab Received: 06/16/2021 07:32 AM Pathologist: Vania Avendano MD Specimens: A) - Skin, right chest B) - Skin, mid chest 4:40 PM CDT DERMATOPATHOLOGY LABORATORY Final Diagnosis Specimen A. 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 SKIN, mid chest: SQUAMOUS CELL CARCINOMA, MODERATELY DIFFERENTIATED (C44.529) 1 4:40 PM CDT DERMATOPATHOLOGY LABORATORY at [address] [facility] Clinical History A: BCCA vs SCCA. Path # [id number]. B: BCCA vs SCCA. Path # [id number]. 4:40 PM CDT DERMATOPATHOLOGY LABORATORY Gross Description Specimen A: Received is one formalin filled container labeled with the patient's name and designated right chest. The specimen consists of a shave biopsy measuring 2s0t4hs. Jar 0. Specimen B: Received is one formalin filled container labeled with the patient's name and designated mid chest. The specimen consists of a shave biopsy measuring 3g0k0ep. Jar 0. 1 4:40 PM CDT DERMATOPATHOLOGY LABORATORY Microscopic Description Specimen A. SKIN, right chest: The epidermis shows parakeratosis, full thickness disorderly maturation of keratinocytes, mitoses at different levels, and dyskeratotic cells. Specimen B. SKIN, mid chest: There are nests of squamous epithelial cells which arise from the epidermis and extend into the dermis. The nests have only focal central keratinization and rare horn sukh formation. 1 4:40 PM CDT DERMATOPATHOLOGY LABORATORY Disclaimer An external and internal positive and negative controls are appropriate for the histochemical, immunohistochemical and immunofluorescence stain(s) in this case (if any), except where stated explicitly. The performance characteristics of the stain(s) cited in this report were developed and its performance characteristic determined by the Dermatopathology Laboratory at [facility], directed by Dr. Aníbal Sierra. These tests need not be, and therefore are not, approved by the [place] Food and Drug Administration. The tests are used for clinical purposes. Billing Codes Specimen Charges Stain Charges 20978 08180 1 1 1 4:40 PM CDT DERMATOPATHOLOGY LABORATORY Embedded Images 1 4:40 PM CDT DERMATOPATHOLOGY LABORATORY Pathology/Cytology TISSUE SPECIMEN FROM SKIN / Unknown 06/15/2021 3:33 AM CDT 06/16/2021 7:32 AM CDT Miscellaneous samples (specimen) TISSUE SPECIMEN FROM SKIN / Unknown 06/15/2021 3:33 AM CDT 06/16/2021 7:32 AM CDT us Andrew Uriarte MD LAB - PATHOLOGY/CYTOLOGY ORDER JACEK Final Result DERMATOPATHOLOGY LABORATORY [facility] - Department of Dermatology [facility] Medicine [address] [place] [address], [address] [place] [address], [facility] [phone] documented in this encounter Visit Diagnoses Not on filedocumented in this encounter Care Teams Pneumatic Deicer Inspector Relationship Specialty Start Date End Date Mingo Dotson MD [address] [place] [address] PCP - General 12/30/20 documented as of this encounter
--- OUTSIDE RECORDS SUMMARY | 2025-05-02 15:08 | XMS_ITS | Encounter Summary ---
Author Organization [facility] Address [address] [facility] [place] [address] Care Team Providers Care Stained Glass Window Designer Name Role Phone Romain Chaney Emily CALDERA Primary Care Provider [phone] Mingo Dotson MD Primary Care Provider Encounter Details Date Type Department Care Team (Late st Contact Info) Description 07/10/2020 Lab Requisition 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 Gender Identity Not on file Sexual Orientation Not on file documented as of this encounter Plan of Treatment Not on file documented as of this encounter Procedures Procedure Name Priority Date/Time Associated Diagnosis Comments DERMATOPATHOLOGY Routine 07/09/2020 12:0 0 AM CDT documented in this encounter Results * DERMATOPATHOLOGY (07/09/2020 12:00 AM CDT) Case Report Dermatopathology Report Case: [id number] Authorizing Provider: Andrew Uriarte MD Collected: 07/09/2020 12:00 AM Ordering Location: [facility] DermPath Lab Received: 07/10/2020 02:38 PM Pathologist: Harjinder Sierra MD Specimen: Skin, right distal forearm 0 11:51 AM CDT DERMATOPATHOLOGY LABORATORY Final Diagnosis Specimen A. SKIN, right distal forearm: SQUAMOUS CELL CARCINOMA, WELL DIFFERENTIATED (C44.622) 0 11:51 AM CDT DERMATOPATHOLOGY LABORATORY at 1151 CDT Clinical History SCCA vs BCCA. Path# [id number] 0 11:51 AM CDT DERMATOPATHOLOGY LABORATORY Gross Description Specimen A: Received is one formalin filled container labeled with the patient's name and designated right distal forearm. The specimen consists of a shave biopsy measuring 7x7x2 mm. Jar 0. 0 11:51 AM CDT DERMATOPATHOLOGY LABORATORY Microscopic Description Specimen A. SKIN, right distal forearm: Arising in the epidermis and extending into the dermis there are irregularly shaped aggregates of keratinocytes showing evidence of premature cornification. 0 11:51 AM CDT DERMATOPATHOLOGY LABORATORY Disclaimer An external and internal positive and negative controls are appropriate for the histochemical, immunohistochemical and immunofluorescence stain(s) in this case (if any), except where stated explicitly. The performance characteristics of the stain(s) cited in this report were developed and its performance characteristic determined by the Dermatopathology Laboratory at [facility], directed by Dr. Aníbal Sierra. These tests need not be, and therefore are not, approved by the [place] Food and Drug Administration. The tests are used for clinical purposes. Billing Codes Specimen Charges Stain Charges 17665 1 0 11:51 AM CDT DERMATOPATHOLOGY LABORATORY Embedded Images 0 11:51 AM CDT DERMATOPATHOLOGY LABORATORY Pathology/Cytolog y TISSUE SPECIMEN FROM SKIN / Unknown 07/09/2020 07/10/2020 2:38 PM CDT us Andrew Uriarte MD LAB - PATHOLOGY/CYTOLOGY ORDER JACEK Final Result DERMATOPATHOLOGY LABORATORY [facility] - Department of Dermatology [facility]/[address] [phone] documented in this encounter Visit Diagnoses Not on filedocumented in this encounter Care Teams Stained Glass Window Designer Relationship Specialty Start Date End Date Romain Chaney DO [address] [facility] [address] [place] [address] PCP - General 02/03/11 12/29/20 Mingo Dotson MD [address] [place] [address] PCP - General 12/30/20 documented as of this encounter
--- OUTSIDE RECORDS SUMMARY | 2025-05-02 15:08 | XMS_ITS | Encounter Summary ---
Author Organization [facility] Address [address] [place] [address] Care Team Providers Care Automotive Painter Name Role Phone Mingo Dotson MD Primary Care Provider [phone] Encounter Details Date Type Department Care Team (Late st Contact Info) Description 07/30/2021 Lab Requisition [facility] Care DermPath Lab [address] [facility] [place] [phone] Andrew Uriarte MD [address] [facility] [place] [address] Social History Tobacco Use Types Packs/Day Years Used Date Smoking Tobacco: Every Day Cigarettes Smokeless Tobacco: Never Alcohol Use Standard Drinks/Week Comments Yes 12.5 (1 standard drink = 0.6 oz pure alcohol) 1 Vodka tonic everyday Comments Unknown Sex and Gender Information Value Date Recorded Sex Assigned at Not on file 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 SKIN, mid chest: SQUAMOUS CELL CARCINOMA IN SITU (HERNANDEZ'S DISEASE), FOCAL (D04.5) PRESENT AT MARGIN DERMAL SCAR (L90.5) (see microscopic description) 5:56 PM CDT DERMATOPATHOLOGY LABORATORY at 1756 CDT Clinical History Bx proven mod diff SCCA. Path # [id number]. Check margins. 5:56 PM CDT DERMATOPATHOLOGY LABORATORY Gross Description Specimen A: Received is one formalin filled container labeled with the patient's name and designated mid chest. The specimen consists of a non-oriented ellipse of skin measuring 65u47m5py. The epidermal surface is unremarkable. The margin is inked green. The 12 o'clock and 6 o'clock tips are submitted in cassette 1. The remainder of the ellipse is serially sectioned and submitted in cassettes 2-3. Jar 0. 5:56 PM CDT DERMATOPATHOLOGY LABORATORY Microscopic Description Specimen A. SKIN, mid chest: The epidermis shows parakeratosis, full thickness disorderly maturation of keratinocytes, mitoses at different levels, and dyskeratotic cells. This lesion is present at one lateral margin of the specimen and present at one tip of the specimen. There are fibroblasts and collagen bundles oriented parallel to the skin surface with elongated blood vessels, some of which are oriented perpendicular to the skin surface. 1 5:56 PM CDT DERMATOPATHOLOGY LABORATORY Disclaimer An external and internal positive and negative controls are appropriate for the histochemical, immunohistochemical and immunofluorescence stain(s) in this case (if any), except where stated explicitly. The performance characteristics of the stain(s) cited in this report were developed and its performance characteristic determined by the Dermatopathology Laboratory at [facility], directed by Dr. Aníbal Sierra. These tests need not be, and therefore are not, approved by the [place] Food and Drug Administration. The tests are used for clinical purposes. Billing Codes Specimen Charges Stain Charges 53059 1 1 5:56 PM CDT DERMATOPATHOLOGY LABORATORY Embedded Images 1 5:56 PM CDT DERMATOPATHOLOGY LABORATORY Pathology/Cytolog y TISSUE SPECIMEN FROM SKIN / Unknown 07/29/2021 07/30/2021 7:52 AM CDT Andrew Uriarte MD LAB - PATHOLOGY/CYTOLOGY ORDER JACEK Final Result DERMATOPATHOLOGY LABORATORY [facility] Department of Dermatology [facility] Specialized Medicine [address] [place] [address], [address] [phone] documented in this encounter Visit Diagnoses Not on filedocumented in this encounter Care Teams Automotive Painter Relationship Specialty Start Date End Date Mingo Dotson MD [address] [place], [place] [id number] PCP - General 12/30/20 documented as of this encounter
--- OUTSIDE RECORDS SUMMARY | 2025-05-02 15:09 | XMS_ITS | Encounter Summary ---
Author Organization [facility] Address [address] [facility] [place] [address] Care Team Providers Care Clinical Informaticist Name Role Phone Mingo Dotson MD Primary Care Provider [phone] Encounter Details Date Type Department Care Team (Late st Contact Info) Description 06/21/2023 Lab Requisition [facility] - DermPath Lab [address] [facility] [place] [phone] Andrew Uriarte MD [address] [facility] [place] [address] Social History Tobacco Use Types Packs/Day Years Used Date Smoking Tobacco: Every Day Cigarettes Smokeless Tobacco: Never Alcohol Use Standard Drinks/Week Comments Yes 12.5 (1 standard drink = 0.6 oz pure alcohol) 1 Vodka tonic everyday Comments Unknown Sex and Gender Information Value Date Recorded Sex Assigned at Not on file 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 Answer Date of Assessment Author No 01/22/2022 9:12 AM Lavonne Ashley RN * Is person blind or have serious difficulty seeing? Answer Date of Assessment Author No 01/22/2022 9:12 AM STEEL POST INSTALLER Lavonne Michelle RN * Does person have serious difficulty walking/climbing stairs? Answer Date of Assessment Author No 01/22/2022 9:12 AM STEEL POST INSTALLER Lavonne Michelle RN * Does person have difficulty dressing/bathing? Answer Date of Assessment Author No 01/22/2022 9:12 AM Lavonne Ashley RN * Does person have difficulty doing errands alone? Answer Date of Assessment Author No 01/22/2022 9:12 AM Lavonne Ashley RN documented as of this encounter Mental Status * Does person have difficulty concentrating/remembering/making decisions? Answer Entry Date Author No 01/22/2022 9:12 AM Lavonne Ashley RN documented in this encounter Plan of Treatment Not on file documented as of this encounter Procedures Procedure Name Priority Date/Time Associated Diagnosis Comments DERMATOPATHOLOGY Routine 06/20/2023 12:0 0 AM CDT documented in this encounter Results * DERMATOPATHOLOGY (06/20/2023 12:00 AM CDT) Case Report Dermatopathology Report Case: [id number] Authorizing Provider: Andrew Uriarte MD Collected: 06/20/2023 12:00 AM Ordering Location: [facility] DermPath Lab Received: 06/21/2023 04:52 PM Pathologist: Harjinder Sierra MD Specimen: Skin, vertex crown 5:16 PM CDT DERMATOPATHOLOGY LABORATORY Final Diagnosis Specimen A. SKIN, vertex crown: SQUAMOUS CELL CARCINOMA IN SITU (HERNANDEZ'S DISEASE) (D04.4) 3 5:16 PM CDT DERMATOPATHOLOGY LABORATORY at 1716 CDT Clinical History BCCA vs SCCA Path#[id number] 3 5:16 PM CDT DERMATOPATHOLOGY LABORATORY Gross Description Specimen A: Received is one formalin filled container labeled with the patient's name and designated vertex crown. The specimen consists of a shave biopsy measuring 8x8x1 mm. Jar 0. 3 5:16 PM CDT DERMATOPATHOLOGY LABORATORY Microscopic Description Specimen A. SKIN, vertex crown: The epidermis shows parakeratosis, full thickness disorderly maturation of keratinocytes, mitoses at different levels, and dyskeratotic cells. 5:16 PM CDT DERMATOPATHOLOGY LABORATORY Disclaimer An external and internal positive and negative controls are appropriate for the histochemical, immunohistochemical and immunofluorescence stain(s) in this case (if any), except where stated explicitly. The performance characteristics of the stain(s) cited in this report were developed and its performance characteristic determined by the Dermatopathology Laboratory at [facility], directed by Dr. Aníbal Sierra. These tests need not be, and therefore are not, approved by the [place] Food and Drug Administration. The tests are used for clinical purposes. Billing Codes Specimen Charges Stain Charges 76308 1 3 5:16 PM CDT DERMATOPATHOLOGY LABORATORY Embedded Images 3 5:16 PM CDT DERMATOPATHOLOGY LABORATORY Pathology/Cytolog y TISSUE SPECIMEN FROM SKIN / Unknown 06/20/2023 06/21/2023 4:52 PM CDT Andrew Uriarte MD LAB - PATHOLOGY/CYTOLOGY ORDER JACEK Final Result DERMATOPATHOLOGY LABORATORY [facility] - Department of Dermatology [facility] [address] [place] [address], [address] [phone] documented in this encounter Visit Diagnoses Not on filedocumented in this encounter Care Teams Clinical Informaticist Relationship Specialty Start Date End Date Mingo Dotson MD [address] [place] [address] PCP - General 12/30/20 documented as of this encounter
--- OUTSIDE RECORDS SUMMARY | 2025-05-02 15:09 | XMS_ITS ---
Author Organization [facility] Address [address] [place], [place] [id number] Care Team Providers Care Manager Data Name Role Phone MABEL EVERETT Unavailable [phone] Mingo Dotson Unavailable Unavailable Allergies Allergen (clinical drug ingredient) Drug/Non Drug Allergy documented on EMR Reaction Allergy Type Onset Date Status Substance with sulfonamide structure and antibacterial mechanism of action (substance) Sulfa Antibiotics Unknown Drug Allergy Active REASON FOR VISIT The patient had her left great toenail removed and now it has formed a large thick callus on the nail bed. Touching it causes extreme pain Medications Medication SIG (Take, Route, Frequency, Duration) Notes Start Date End Date Status Simvastatin 80 MG 1 tablet in the even ing Orally Once a day Active Anoro Ellipta 62.5-25 MCG/ACT 1 puff Inhalation Once a day Active Lisinopril 20 MG 1 tablet Orally Once a day Active amLODIPine Besylate 10 MG 1 tablet Orall y Once a day Active Pregabalin 75 MG 1 capsule Orally Onc e a day Active ZyrTEC Allergy 10 MG 1 capsule Orally On ce a day Active Social History Tobacco Use: Social History Observation Description Date Details (start date - stop date) Current Smoker NA - NA Tobacco Control (Standard) Question Answer Notes Tobacco use: Current smoker How often do you smoke cigarettes? Every day How many cigarettes a day do you smoke? 6-10 Vital Signs Height 67 in 04/22/2025 Weight 160 lbs 04/22/2025 BMI 25.06 kg/m2 04/22/2025 Height-cm 170.18 cm 04/22/2025 Weight-kg 72.58 kg 04/22/2025 Encounters Encounter Location Date Provider Diagnosis [facility] [address] [facility] [address] [place], [place] [id number] 04/22/2025 MABEL EVERETT Tinea unguium B35.1 ; Acquired keratosis [keratoderma] palmaris et plantaris L85.1 and Ingrowing nail L60.0 Assessments Encounter Date Diagnosis (ICD Code) Assessment Notes Treatment Notes Treatment Clinical Notes Section Notes 04/22/2025 Tinea unguium (ICD-10 - B35.1) 04/22/2025 Acquired keratosis [keratoderma] palmaris et plantaris (ICD-10 - L85.1) 04/22/2025 Ingrowing nail (ICD-10 - L60.0) 04/22/2025 Other Following skin prep, the toe was injected with 3ccs of a 1:1 mixture of 0.5% marcaine plain and 1% lidocaine plain. The nail bed was aggressively debrided to normal appearing skin Plan Of Treatment Treatment Notes Assessment Notes Other Following skin prep, the toe was injected with 3ccs of a 1:1 mixture of 0.5% marcaine plain and 1% lidocaine plain. The nail bed was aggressively debrided to normal appearing skin Next Appt Details Follow Up: 3 Weeks, Reason: See how debridement and emolients helped Provider Name:MABEL EVERETT, 09:10:00 AM, [address], [facility] [address], [place], [place], [id number], Progress Notes * Daniela MAGAÑAeDOB:1950 (74 yo F)Acc No.[id number]:04/22/2025 Patient: Florencio AZULElsie Miladis Provider: Zina Everett DPM :1950 A ge:74 Y S ex:Female Date:04/22/2025 Address:[address] [place], [place] [id number] Subjective: * Chief Complaints: * 1 . The patient had her left great toenail removed and now it has formed a large thick callus on the nail bed. Touching it causes extreme pain. * HPI: H PI: New Complaint E stablished patient presents with a new complaint., Patient complains of an issue to her left great toenail. Patient states she had the entire nail removed about 3 months ago. Patient states that about 2 months ago her toenail started causing her pain. Patient states that the nail has not grown back, but the skin and scab have raised up and become hard. Patient denies any injury., MA: ars. * ROS: G eneral / Constitutional: Patient denies c hills, fever, weakness, night sweats. M usculoskeletal: Patient denies c hildhood foot problems, weakness. ? P eripheral Vascular: Patient denies u lceration of feet, cold extremities. ? S kin: Patient denies u lcerations, discoloration. ? N eurologic: Patient denies b alance difficulty, confusion, difficulty speaking, dizziness. * Medical History: N europathy, Pneumonia, Stroke, Asthma/Bronchitis, Cancer, Leg/Feet cramps, Respiratory disease, Arthritis, Skin cancer, Sleep apnea, Back Trouble, High blood pressure. * Surgical History: A neurysm 08/2020. * Family History: F ather: , Cancer. M other: , Cancer, High Blood Pressure. S ister: , Cancer, High Blood Pressure. * Social History: T obacco Use: T obacco Control (Standard) T obacco use: C urrent smoker, H ow often do you smoke cigarettes? E very day, H ow many cigarettes a day do you smoke? 6 -10. D rugs/Alcohol: D o you drink alcohol?: Yes, Socially. * Medications: T aking ZyrTEC Allergy 10 MG Capsule 1 capsule Orally Once a day , Taking Pregabalin 75 MG Capsule 1 capsule Orally Once a day , Taking amLODIPine Besylate 10 MG Tablet 1 tablet Orally Once a day , Taking Simvastatin 80 MG Tablet 1 tablet in the evening Orally Once a day , Taking Lisinopril 20 MG Tablet 1 tablet Orally Once a day , Taking Anoro Ellipta 62.5-25 MCG/ACT Aerosol Powder Breath Activated 1 puff Inhalation Once a day , Medication List reviewed and reconciled with the patient * Allergies: S ulfa Antibiotics. Objective: * Vitals: S hoe Size: 8, Wt:160lbs, Wt-k.58 kg, Ht: 67 in, Ht-cm: 170.18 cm, BMI:25.06Index, Body Surface Area: 1.85. * Examination: C onstitutional: Constitutional T he patient is awake, alert, well developed, well groomed and well nourished. . D ermatologic: Skin findings: S kin is warm, dry, supple with no breaks in the skin. . Nail pathology: t he left hallux nail bed has a very large hyperkeratotic skin lesion that is extremely painful to the touch. M usculoskeletal: Muscle Strength M uscle strength is 5/5 in regards to dorsiflexion, plantarflexion, inversion, and eversion in bilateral lower extremities. . ? N eurologic: Muscle power: 5 /5 bilaterally . Gross sensation G ross sensation is intact to light touch. . V ascular: Dorsalis pedis pulse: 2 /4 bilateral . Posterior tibial pulse: 2 /4 bilaterally . Capillary refill: l ess than 3 seconds bilaterally . Temperature gradient: w ithin normal limits . ? Assessment: * Assessment: 1. T inea unguium - B35.1 (Primary) 2 . A cquired keratosis [keratoderma] palmaris et plantaris - L85.1 3 . I ngrowing nail - L60.0 Plan: * Treatment: * Follow Up: 3 Weeks (Reason: See how debridement and emolients helped) * Billing Information: * Visit Code: * Procedure Codes: * Electronic signature of MABEL EVERETT DPM on 05/02/2025 at 03:08 PM CDT Sign off status: Pending * Provider: Zina Everett DPM Date: 04/22/2025 Generated for Ita duran/Dang/Emily on: 05/02/2025 03:08 PM CDT History and Physical Notes * HPI (History of Present Illness) Category Sub-Category Detail Notes Category Not es HPI New Complaint Established marbella ent presents with a new complaint., Patient complains of an issue to her left great toenail. Patient states she had the entire nail removed about 3 months ago. Patient states that about 2 months ago her toenail started causing her pain. Patient states that the nail has not grown back, but the skin and scab have raised up and become hard. Patient denies any injury., MA: ars Examination Category Sub-Category Detail Notes Category Not es Constitutional Constitutional The patient is a wake, alert, well developed, well groomed and well nourished. Dermatologic Skin findings: Skin is warm, dr y, supple with no breaks in the skin. Nail pathology: the left hallux nail bed has a very large hyperkeratotic skin lesion that is extremely painful to the touch Musculoskeletal Muscle Strength Muscle strength is 5/5 in regards to dorsiflexion, plantarflexion, inversion, and eversion in bilateral lower extremities. Neurologic Muscle power: 5/5 bilaterally Gross sensation Gross sensation is i ntact to light touch. Vascular Dorsalis pedis pulse: 2/4 bilateral Posterior tibial pulse: 2/4 bilaterally Capillary refill: less than 3 seconds bilaterally Temperature gradient: within normal limi ts
--- OUTSIDE RECORDS SUMMARY | 2025-05-02 15:09 | XMS_ITS | Encounter Summary ---
Author Organization [facility] Address [address] [facility] [place] [address] Care Team Providers Care Dye Room Helper Name Role Phone iMngo Dotson MD Primary Care Provider [phone] Encounter Details Date Type Department Care Team (Late st Contact Info) Description 12/20/2022 Lab Requisition [facility] [address] [facility] [place] [phone] Andrew Uriarte MD [address] [facility] [place] [address] Social History Tobacco Use Types Packs/Day Years Used Date Smoking Tobacco: Every Day Cigarettes Smokeless Tobacco: Never Alcohol Use Standard Drinks/Week Comments Yes 12.5 (1 standard drink = 0.6 oz pure alcohol) 1 Vodka tonic everyday Comments Unknown Sex and Gender Information Value Date Recorded Sex Assigned at Not on file Legal Sex Female 6:09 PM HAIRSPRING I INSPECTOR Gender Identity Not on file Sexual Orientation Not on file documented as of this encounter Functional Status * Is person deaf or have serious hearing difficulty? Answer Date of Assessment Author No 01/22/2022 9:12 AM Lavonne Ashley RN * Is person blind or have serious difficulty seeing? Answer Date of Assessment Author No 01/22/2022 9:12 AM HAIRSPRING I INSPECTOR Lavonne Michelle RN * Does person have serious difficulty walking/climbing stairs? Answer Date of Assessment Author No 01/22/2022 9:12 AM Lavonne Ashley RN * Does person have difficulty dressing/bathing? [...] Priority Date/Time Associated Diagnosis Comments DERMATOPATHOLOGY Routine 12/20/2022 12:0 0 AM HAIRSPRING I INSPECTOR documented in this encounter Results * DERMATOPATHOLOGY (12/20/2022 12:00 AM HAIRSPRING I INSPECTOR) Case Report Dermatopathology Report Case: [id number] Authorizing Provider: Andrew Uriarte MD Collected: 12/20/2022 12:00 AM Ordering Location: [facility] DermPath Lab Received: 12/20/2022 03:48 PM Pathologist: Vania Avendano MD Specimens: A) - Skin, right arm B) - Skin, left lower cheek 3 1:44 PM [facility] DERMATOPATHOLOGY LABORATORY Final Diagnosis Specimen A. 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 SKIN, left lower cheek: SQUAMOUS CELL CARCINOMA IN SITU, , VERRUCOUS-HYPERTROP HIC TYPE, PRESENT AT THE BASE OF THE SPECIMEN (D04.39) (see microscopic description and comment) 3 1:44 PM [facility] DERMATOPATHOLOGY LABORATORY at 1344 HAIRSPRING I INSPECTOR Clinical History A: BCC vs SCC Path#[id number] B: BCC vs SCC Path#[id number] 3 1:44 PM [facility] DERMATOPATHOLOGY LABORATORY Gross Description Specimen A: Received is one formalin filled container labeled with the patient's name and designated right arm. The specimen consists of a shave biopsy measuring 6x6x1 mm. Jar 0. Specimen B: Received is one formalin filled container labeled with the patient's name and designated left lower cheek. The specimen consists of a shave biopsy measuring 7x5x3 mm. Jar 0. 3 1:44 PM [facility] DERMATOPATHOLOGY LABORATORY Microscopic Description Specimen A. SKIN, right arm: The epidermis shows parakeratosis, full thickness disorderly maturation of keratinocytes, mitoses at different levels, and dyskeratotic cells. Specimen B. SKIN, left lower cheek: The epidermis is acanthotic and shows full thickness disorderly maturation of keratinocytes, mitoses at different levels, and dyskeratotic cells. There is overlying parakeratosis and hyperkeratosis. The lesion extends to the base of the biopsy. COMMENT: An invasive squamous cell carcinoma cannot be ruled out. 3 1:44 PM [facility] DERMATOPATHOLOGY LABORATORY Disclaimer An external and internal positive and negative controls are appropriate for the histochemical, immunohistochemical and immunofluorescence stain(s) in this case (if any), except where stated explicitly. The performance characteristics of the stain(s) cited in this report were developed and its performance characteristic determined by the Dermatopathology Laboratory at [facility], directed by Dr. Aníbal Sierra. These tests need not be, and therefore are not, approved by the [place] Food and Drug Administration. The tests are used for clinical purposes. Billing Codes Specimen Charges Stain Charges 28609 18456 1 1 3 1:44 PM HAIRSPRING I INSPECTOR DERMATOPATHOLOGY LABORATORY Embedded Images 3 1:44 PM HAIRSPRING I INSPECTOR DERMATOPATHOLOGY LABORATORY Pathology/Cytology TISSUE SPECIMEN FROM SKIN / Unknown 12/20/2022 12/20/2022 3:48 PM HAIRSPRING I INSPECTOR Miscellaneous samples (specimen) TISSUE SPECIMEN FROM SKIN / Unknown 12/20/2022 12/20/2022 3:48 PM HAIRSPRING I INSPECTOR us Andrew Uriarte MD LAB - PATHOLOGY/CYTOLOGY ORDER JACEK Final Result DERMATOPATHOLOGY LABORATORY [facility] - Department of Dermatology [address], [address] [place] [address], [facility] [phone] documented in this encounter Visit Diagnoses Not on filedocumented in this encounter Care Teams Dye Room Helper Relationship Specialty Start Date End Date Mingo Dotson MD [address] [place] [id number] PCP - General 12/30/20 documented as of this encounter
--- OUTSIDE RECORDS SUMMARY | 2025-05-02 15:09 | XMS_ITS | Encounter Summary ---
Author Organization [facility] Address [address] [facility] [place] [address] Care Team Providers Care Solar Photovoltaic Installer Name Role Phone Mingo Dotson MD Primary Care Provider [phone] Encounter Details Date Type Department Care Team (Late st Contact Info) Description 02/24/2023 Lab Requisition [facility] [address] [facility] [place] [phone] Andrew Uriarte MD [address] [facility] [place] [address] Social History Tobacco Use Types Packs/Day Years Used Date Smoking Tobacco: Every Day Cigarettes Smokeless Tobacco: Never Alcohol Use Standard Drinks/Week Comments Yes 12.5 (1 standard drink = 0.6 oz pure alcohol) 1 Vodka tonic everyday Comments Unknown Sex and Gender Information Value Date Recorded Sex Assigned at Not on file Legal Sex Female 6:09 PM MANAGER STERILE Gender Identity Not on file Sexual Orientation Not on file documented as of this encounter Functional Status * Is person deaf or have serious hearing difficulty? Answer Date of Assessment Author No 01/22/2022 9:12 AM Lavonne Ashley RN * Is person blind or have serious difficulty seeing? Answer Date of Assessment Author No 01/22/2022 9:12 AM MANAGER STERILE Lavonne Michelle RN * Does person have [...] Priority Date/Time Associated Diagnosis Comments DERMATOPATHOLOGY Routine 02/23/2023 12:0 0 AM CDT documented in this encounter Results * DERMATOPATHOLOGY (02/23/2023 12:00 AM CDT) Case Report Dermatopathology Report Case: [id number] Authorizing Provider: Andrew Uriarte MD Collected: 02/23/2023 12:00 AM Ordering Location: [facility] DermPath Lab Received: 02/24/2023 06:33 AM Pathologist: Flor Meng MD Specimen: Skin, left lower cheek 5:59 PM CDT DERMATOPATHOLOGY LABORATORY Final Diagnosis Specimen A. 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 The specimen consists of a 14x8x4 mm piece of skin. The margin is inked green. The specimen is bisected lengthwise and submitted in 1 cassette. Jar 0. 5:59 PM CDT DERMATOPATHOLOGY LABORATORY Microscopic Description Specimen A. SKIN, left lower cheek: The epidermis shows parakeratosis, full thickness disorderly maturation of keratinocytes, mitoses at different levels, and dyskeratotic cells. This lesion is not present at the sampled margin of the specimen. There is focal dermal fibrosis. 3 5:59 PM CDT DERMATOPATHOLOGY LABORATORY Disclaimer An external and internal positive and negative controls are appropriate for the histochemical, immunohistochemical and immunofluorescence stain(s) in this case (if any), except where stated explicitly. The performance characteristics of the stain(s) cited in this report were developed and its performance characteristic determined by the Dermatopathology Laboratory at [facility], directed by Dr. Aníbal Sierra. These tests need not be, and therefore are not, approved by the [place] Food and Drug Administration. The tests are used for clinical purposes. Billing Codes Specimen Charges Stain Charges 07311 1 3 5:59 PM CDT DERMATOPATHOLOGY LABORATORY Embedded Images 3 5:59 PM CDT DERMATOPATHOLOGY LABORATORY Pathology/Cytolog y TISSUE SPECIMEN FROM SKIN / Unknown 02/23/2023 02/24/2023 6:33 AM CDT us Andrew Uriarte MD LAB - PATHOLOGY/CYTOLOGY ORDER JACEK Final Result DERMATOPATHOLOGY LABORATORY [facility] - Department of Dermatology [facility] Medicine [address] [place] [address], [address] [phone] documented in this encounter Visit Diagnoses Not on filedocumented in this encounter Care Teams Solar Photovoltaic Installer Relationship Specialty Start Date End Date Mingo Dotson MD [address] [place] [address] PCP - General 12/30/20 documented as of this encounter
--- OUTSIDE RECORDS SUMMARY | 2025-05-02 15:09 | XMS_ITS | Patient Health Record ---
Author Organization [facility] Address [address] [place], [place] [id number] Care Team Providers Care Automobile Detailer Name Role Phone MABEL EVERETT Unavailable [phone] Mingo Dotson Unavailable Unavailable MABEL CHUA Unavailable [phone] Allergies Allergen (clinical drug ingredient) Drug/Non Drug Allergy documented on EMR Reaction Allergy Type Onset Date Status Substance with sulfonamide structure and antibacterial mechanism of action (substance) Sulfa Antibiotics Unknown Drug Allergy Active Reason For Referral No Information Medications Medication SIG (Take, Route, Frequency, Duration) Notes Start Date End Date Status Simvastatin 80 MG 1 tablet in the even ing Orally Once a day Active Anoro Ellipta 62.5-25 MCG/ACT 1 puff Inhalation Once a day Active Lisinopril 20 MG 1 tablet Orally Once a day Active ZyrTEC Allergy 10 MG 1 capsule Orally On ce a day Active amLODIPine Besylate 10 MG 1 tablet Orall y Once a day Active Pregabalin 75 MG 1 capsule Orally Onc e a day Active Social History Tobacco Use: Social History Observation Description Date Details (start date - stop date) Current Smoker NA - NA Tobacco Control (Standard) Question Answer Notes Tobacco use: Current smoker How often do you smoke cigarettes? Every day How many cigarettes a day do you smoke? 6-10 Vital Signs Height-cm 170.18 cm 04/22/2025 Weight-kg 72.58 kg 04/22/2025 Height 67 in 04/22/2025 Weight 160 lbs 04/22/2025 BMI 25.06 kg/m2 04/22/2025 Encounters Encounter Location Date Provider Diagnosis [facility] [place] [address] [place] [address] [id number] 04/22/2025 MABEL SNOOK Tinea unguium B35.1 ; Acquired keratosis [keratoderma] palmaris et plantaris L85.1 and Ingrowing nail L60.0 [facility] [place] [address] [address] [place] [address] [id number] 12/06/2024 MABEL [place] Ingrowing nail L60.0 ; Peroneal tendinitis of left lower extremity M76.72 and Left foot pain M79.672 [facility] [place] [address] [address] [place] [address] [id number] 12/20/2024 MABEL [place] Ingrowing nail L60.0 ; Peroneal tendinitis of left lower extremity M76.72 ; Cellulitis of left toe L03.032 and Left foot pain M79.672 [facility] [place] [address] [address] [place] [address] [id number] 01/07/2025 MABEL SNOOK Ingrowing nail L60.0 and Encounter for other specified surgical aftercare Z48.89 [facility] [place] [address] [address] [place] [address] [id number] 01/21/2025 MABEL SNOOK Ingrowing nail L60.0 and Encounter for other specified surgical aftercare Z48.89 Assessments Encounter Date Diagnosis (ICD Code) Assessment Notes Treatment Notes Treatment Clinical Notes Section Notes 12/06/2024 Ingrowing nail (ICD-10 - L60.0) 12/06/2024 Peroneal tendinitis of left lower extremity (ICD-10 - M76.72) 01/07/2025 Ingrowing nail (ICD-10 - L60.0) Post-op Matrixectomy The patient will continue foot soaks and covering with a dry bandage until drainage has stopped. The patient will monitor this area for any signs of recurrence and contact the office with any problems. Patient will follow-up on an as-needed basis. 01/07/2025 Encounter for other specified surgical aftercare (ICD-10 - Z48.89) 01/21/2025 Ingrowing nail (ICD-10 - L60.0) Post-op Matrixectomy The patient will continue foot soaks and covering with a dry bandage until drainage has stopped. The patient will monitor this area for any signs of recurrence and contact the office with any problems. Patient will follow-up on an as-needed basis. 01/21/2025 Encounter for other specified surgical aftercare (ICD-10 - Z48.89) 04/22/2025 Tinea unguium (ICD-10 - B35.1) 12/20/2024 Ingrowing nail (ICD-10 - L60.0) I discussed various treatment options to the patient for onychocryptosis. I discussed removal of the offending nail border and chemical matrixectomy to prevent regrowth. The patient decided on temporary removal of the nail border. The consent was signed and placed in the patients chart and all questions were answered. Following skin prep, the toe was injected with 3ccs of a 1:1 mixture of 0.5% marcaine plain and 1% lidocaine plain. A digital tournequet was applied and the offending nail was removed. The digital tourniquet was released and the toe was cleansed with isopropyl alcohol. A dry sterile compressive dressing was applied and the patient was given soaking instructions. 12/20/2024 Peroneal tendinitis of left lower extremity (ICD-10 - M76.72) Gradually d/c trilok 04/22/2025 Acquired keratosis [keratoderma] palmaris et plantaris (ICD-10 - L85.1) 04/22/2025 Ingrowing nail (ICD-10 - L60.0) 12/06/2024 Left foot pain (ICD-10 - M79.672) 12/20/2024 Cellulitis of left toe (ICD-10 - L03.032) 12/20/2024 Left foot pain (ICD-10 - M79.672) 04/22/2025 Other Following skin prep, the toe was injected with 3ccs of a 1:1 mixture of 0.5% marcaine plain and 1% lidocaine plain. The nail bed was aggressively debrided to normal appearing skin 12/06/2024 Other A trilok ankle brace was dispensed for the pateint's left and the patient was instructed on it's use. Trimmed nail. Advised her to keep it taped down with band-aid. May consider removal 12/20/2024 Other 01/21/2025 Other B6 And B12: Recommend that the patient take over the counter Vitamin B6 and B12. B6 pills should be taken 2-3 times a day. Vitamin B12 should be taken once a day as an under the tongue lozenge. Plan Of Treatment Next Appt Details Provider Name:MABEL EVERETT, 09:10:00 AM, [address], [place], [place], [id number], Insurance Providers Payer Name Payer Address Payer Phone Subscriber Number Group Number Insured Name Patient Relationship to Insured Coverage Start Date Coverage End Date Medicare Part B [place] [address] [place] [address] [id number] Miladis Galan Self - patient is the insured 5 [facility] ATTN CLAIMS [address] [place] [address] [id number] 5 [id number] Miladis Galan Self - patient is the insured 4 [facility] [place] [address] [address] [place], [place] [id number] Miladis Galan Self - patient is the insured Medical (General) History Medical History History ICD Code neuropathy Pneumonia stroke Asthma/Bronchitis Cancer Leg/Feet cramps Respiratory disease Arthritis skin cancer Sleep apnea Back Trouble high blood pressure Surgical History Surgery Date(Month/Year) Aneurysm 08/2020
--- OUTSIDE RECORDS SUMMARY | 2025-05-02 15:09 | XMS_ITS | Encounter Summary ---
Author Organization [facility] Address [address] [place] [address] Care Team Providers Care Director Of Informatics Name Role Phone Mingo Dotson MD Primary Care Provider [phone] Encounter Details Date Type Department Care Team (Late st Contact Info) Description 12/21/2023 Lab Requisition [facility] [address] [facility] [address] [facility] [address] [place] [id number] Andrew Uriarte MD [address] [place] [address] Social History Tobacco Use Types Packs/Day Years Used Date Smoking Tobacco: Every Day Cigarettes Smokeless Tobacco: Never Alcohol Use Standard Drinks/Week Comments Yes 12.5 (1 standard drink = 0.6 oz pure alcohol) 1 Vodka tonic everyday Comments Unknown Sex and Gender Information Value Date Recorded Sex Assigned at Not on file Legal Sex Female 6:09 PM [employer] Gender Identity Not on file Sexual Orientation Not on file documented as of this encounter Functional Status * Is person deaf or have serious hearing difficulty? Answer Date of Assessment Author No 01/22/2022 9:12 AM Lavonne Ashley RN * Is person blind or have serious difficulty seeing? Answer Date of Assessment Author No 01/22/2022 9:12 AM [employer] Lavonne Michelle RN * Does person have serious difficulty walking/climbing stairs? Answer Date of Assessment Author No 01/22/2022 9:12 AM [employer] Lavonne Michelle RN * Does person have difficulty dressing/bathing? Answer Date of Assessment Author No 01/22/2022 9:12 AM [employer] Lavonne Michelle RN * Does person have difficulty doing errands alone? Answer Date of Assessment Author No 01/22/2022 9:12 AM [employer] Lavonne Michelle RN documented as of this encounter Mental Status * Does person have difficulty concentrating/remembering/making decisions? Answer Entry Date Author No 01/22/2022 9:12 AM Lavonne Ashley RN documented in this encounter Plan of Treatment Not on file documented as of this encounter Procedures Procedure Name Priority Date/Time Associated Diagnosis Comments DERMATOPATHOLOGY Routine 12/20/2023 3:33 AM [employer] documented in this encounter Results * DERMATOPATHOLOGY (12/20/2023 3:33 AM [employer]) Case Report Dermatopathology Report Case: [id number] Authorizing Provider: Andrew Uriarte MD Collected: 12/20/2023 03:33 AM Ordering Location: [facility] Received: 12/21/2023 10:55 AM Pathologist: Amanda Meng MD Specimens: A) - Skin, left mosque B) - Skin, left lower deltoid C) - Skin, right mid soriano (lat) D) - Skin, right distal mid soriano 4 4:40 PM [facility] DER[facility]ORATORY Final Diagnosis Specimen A. 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 AK. Path# [id number] B: SCCA vs. AK. Path# [id number] C: SCCA vs. AK. Path# [id number] D: SCCA vs. AK. Path# [id number] 4:40 PM [facility] DERMATOP[facility]ORATORY Gross Description Specimen A: Received is one formalin filled container labeled with the patient's name and designated left mosque. The specimen consists of a shave biopsy measuring 7x5x1 mm. Jar 0. Specimen B: Received is one formalin filled container labeled with the patient's name and designated left lower deltoid. The specimen consists of a shave biopsy measuring 8x5x1 mm. Jar 0. Specimen C: Received is one formalin filled container labeled with the patient's name and designated right mid soriano (lat). The specimen consists of a shave biopsy measuring 10x8x1 mm. Jar 0. Specimen D: Received is one formalin filled container labeled with the patient's name and designated right distal mid soriano. The specimen consists of a shave biopsy measuring 6x6x2 mm. Jar 0. 4:40 PM [facility] DERMAT[facility]ORATORY Microscopic Description Specimen A. SKIN, left mosque: The epidermis shows parakeratosis, full thickness disorderly maturation of keratinocytes, mitoses at different levels, and dyskeratotic cells. Specimen B. SKIN, left lower deltoid: The epidermis shows parakeratosis, full thickness disorderly maturation of keratinocytes, mitoses at different levels, and dyskeratotic cells. Specimen C. SKIN, right mid soriano (lat): The epidermis shows parakeratosis, full thickness disorderly maturation of keratinocytes, mitoses at different levels, and dyskeratotic cells. Specimen D. SKIN, right distal mid soriano: The epidermis is acanthotic and shows full thickness disorderly maturation of keratinocytes, mitoses at different levels, and dyskeratotic cells. There is overlying parakeratosis and hyperkeratosis. 4:40 PM [facility] DERMAT[facility]ORATORY Disclaimer An external and internal positive and negative controls are appropriate for the histochemical, immunohistochemical and immunofluorescence stain(s) in this case (if any), except where stated explicitly. The performance characteristics of the stain(s) cited in this report were developed and its performance characteristic determined by the Dermatopathology Laboratory at [facility], directed by Dr. Aníbal Sierra. These tests need not be, and therefore are not, approved by the [place] Food and Drug Administration. The tests are used for clinical purposes. Billing Codes Specimen Charges Stain Charges 39914 74390 [id number] 1 1 1 1 4 4:40 PM [employer] DERMATOPATHOLOGY LABORATORY Embedded Images 4 4:40 PM [employer] DERMATOPATHOLOGY LABORATORY Pathology/Cytology TISSUE SPECIMEN FROM SKIN / Unknown 12/20/2023 3:33 AM [employer] 12/21/2023 10:55 AM [employer] Miscellaneous samples (specimen) TISSUE SPECIMEN FROM SKIN / Unknown 12/20/2023 3:33 AM [employer] 12/21/2023 10:55 AM [employer] Miscellaneous samples (specimen) TISSUE SPECIMEN FROM SKIN / Unknown 12/20/2023 3:33 AM [employer] 12/21/2023 10:55 AM [employer] Miscellaneous samples (specimen) TISSUE SPECIMEN FROM SKIN / Unknown 12/20/2023 3:33 AM [employer] 12/21/2023 10:55 AM [employer] Andrew Uriarte MD LAB - PATHOLOGY/CYTOLOGY ORDER JACEK Final Result DERMATOPATHOLOGY LABORATORY [facility] - Department of Dermatology [facility] [address] [place] [address], [address] [phone] documented in this encounter Visit Diagnoses Not on filedocumented in this encounter Care Teams Director Of Informatics Relationship Specialty Start Date End Date Mingo Dotson MD [address] [place] [id number] PCP - General 12/30/20 documented as of this encounter
--- OUTSIDE RECORDS SUMMARY | 2025-05-02 15:09 | XMS_ITS ---
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 Past Treatment and Therapy Plans No past plan information found. Lifetime Dose Tracking * Chemical Lifetime Dose Automatic Entry Manual Entr y Dose Length Product 3,480 mGy-cm 3,480 mGy-cm 0 mGy-cm Resolved Problems Problem Noted Date Diagnosed Date Resolved Date COPD (chronic obstructive pulmonary disease) 0 09/18/2020
--- OUTSIDE RECORDS SUMMARY | 2025-05-02 15:09 | XMS_ITS | Clinical Summary ---
Author Organization [facility] Address [address] [place] [address] Care Team Providers Care Casino Floorperson Name Role Phone Mingo Dotson MD Primary Care Provider [phone] Source Comments [facility],non-owned Affiliates and Associated Physician Practices is amultiple site organization consisting of ambulatory clinics and hospital sitesin [place], [place], [place] and [place]. This disclosure is being madepursuant to the Care Everywhere program and may not contain all information available regarding this patient. Last updated 18.[facility] Allergies Active Allergy Reactions Criticality Noted Date Comments Sulfa Drugs Rash,Unknown Medium 08/09/2012 Medications * Be aware that medications may not be up to date on this document. Alwaysverify current medications with the patient. multivitamin daily tablet Take by mouth daily with food Active calcium-vitamin D (OS-KINDRA 250 PLUS D 125 UNITS) 250-125 MG-UNIT tablet Take by mouth daily with food Active acetaminophen (TYLENOL) 500 MG tablet Take 1 tablet by mouth every 4 hours Maximum allowable Acetaminophen amount = 4 Grams (4000 mg) / 24 hours. 10/02/20 20 Active aspirin (ASPIRIN) 81 MG chew tablet Take 1 tablet by mouth once daily 10/03/20 20 Active albuterol-iprat ropium (DUO-NEB) 0.5-2.5 (3) MG/3ML nebulizer solution Inhale 3 mL by mouth every 6 hours as needed for Shortness of Breath or Wheezing 10/02/20 20 Active budesonide-form oterol (SYMBICORT) 160-4.5 MCG/ACT inhalerIndicati ons:Chronic Obstructive Pulmonary Disease Inhale 2 puffs by mouth 2 times daily Reasons: Chronic Obstructive Lung Disease 10/02/20 Active heparin 5000 UNIT/ML injection Inject 1 mL subcutaneously every 8 hours 10/02/20 Active Additional Information Patient not taking.Reported on 01/22/2022 amLODIPine (NORVASC) 5 MG tablet Take 1 tablet by mouth once daily 10/03/20 Active Additional Information Patient taking differently: 10 mgOral DAILY, Reported on 01/22/2022 acetylcysteine (MUCOMYST) 20 % solution Inhale 3 mL by mouth once daily as needed (secretions) 10/02/20 Active saline nasal spray (OCEAN; BABY AYR) 0.65 % nasal spray Clark 1 spray into each nostril every 1 hour as needed for Dry Nose 10/02/20 Active artificial tears ophthalmic ointment Instill into both eyes every 8 hours 10/02/20 Active pantoprazole EC (PROTONIX) 40 MG tablet Take 1 tablet by mouth once daily 30 tablet 10/02/20 Active Additional Information Patient not taking.Reported on 01/22/2022 calcium carbonate (CALTRATE) 600 MG tablet Take 1 tablet by mouth once daily Active MULTIPLE VITAMINS-MINERA LS PO Take 2 tablets by mouth once daily Active simvastatin (ZOCOR) 40 MG tablet 80 mg 12/17/19 Active lisinopril (PRINIVIL; ZESTRIL) 20 MG tablet Take 20 mg by mouth once daily Active umeclidinium-vi lanterol (ANORO ELLIPTA) 62.5-25 MCG/INH inhaler Inhale 1 puff by mouth once daily Active Active Problems Problem Noted Date Diagnosed Date Macular degeneration 12/08/2020 Nicotine dependence 12/08/2020 Aneurysm 09/17/2020 Essential (primary) hypertension 09/04/2015 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 (FLUZONE HIGH-DOSE QUADRIVALENT; 65Y+), 0.7 ML (HD-IIV4) 07/30/2020 Family History Medical History Relation Name Comments Cancer Father Cancer Maternal Grandmother Cancer Mother Lung Disease Mother Cancer Paternal Aunt Cancer Sister Relation Name Status Comments Father Maternal Grandmother Mother Paternal Aunt Sister Social History Tobacco Use Types Packs/Day Years Used Date Smoking Tobacco: Every Day Cigarettes Smokeless Tobacco: Never Alcohol Use Standard Drinks/Week Comments Yes 12.5 (1 standard drink = 0.6 oz pure alcohol) 1 Vodka tonic everyday Comments Unknown Sex and Gender Information Value Date Recorded Sex Assigned at Not on file Legal Sex Female 6:09 PM [facility] CARE AIDE Gender Identity Not on file Sexual Orientation Not on file Last Filed Vital Signs Vital Sign Reading Time Taken Comments Blood Pressure 170/78 01/22/2022 9:02 AM OCULAR CARE AIDE Pulse 81 01/22/2022 9:13 AM OCULAR CARE AIDE Temperature 36.3 C (97.4 F) 01/22/2022 9:02 AM OCULAR CARE AIDE Respiratory Rate 13 01/22/2022 9:13 AM OCULAR CARE AIDE Oxygen Saturation 97% 01/22/2022 9:13 AM OCULAR CARE AIDE Inhaled Oxygen Concentration 28% 09/27/2020 4 :54 PM OCULAR CARE AIDE Weight 68.3 kg (150 lb 8 oz) 01/22/2022 6:28 AM OCULAR CARE AIDE Height 170.2 cm (5' 7) 01/22/2022 6:28 AM OCULAR CARE AIDE Body Mass Index 23.57 01/22/2022 6:28 AM OCULAR CARE AIDE Plan of Treatment Health Maintenance Due Date Last Done Comments BONE DENSITY TESTING 1950 COLOGUARD (AGES 45-75) - COL ON CA SCREENING 1950 COLON MONITORING 1950 COLONOSCOPY - COLON CA SCREENING 1950 CT COLONOGRAPHY - COLON CA SCREENING 1950 Colorectal Cancer Screening 1950 FIT - COLON CA SCREENING 1950 FLEX SIG - COLON CA SCREENING 1950 MAMMOGRAM 1950 MEDICARE AWV 12 MONTHS 1950 DTAP/TDAP/TD VACCINES (1 - Tdap) 1969 PNEUMOCOCCAL VACCINE 50+ (1 of 2 - PCV) 1969 ZOSTER VACCINE (1 of 2) 2000 COVID-19 VACCINE (2023-2 5 season) 2024 08/20/2021, 02/11/2021, 01/14/2021 DEPRESSION SCREENING 11/21/2024 INFLUENZA VACCINE (Season Ended) 2025 09/12/2021, 07/30/2020, 08/27/2009 Respiratory Syncytial Virus (RSV) Vaccine Pt: or over 60 yrs (1 - 1-dose 75+ series) 2025 HEPATITIS C SCREENING Completed 09/17/2020 HEPATITIS B VACCINE Aged Out No longe r eligible based on patient's age to complete this topic HIB VACCINE Aged Out No longer eligi ble based on patient's age to complete this topic HPV VACCINE Aged Out No longer eligi ble based on patient's age to complete this topic MENINGOCOCCAL (Group B) VACCINE SHARED DECISION-MAKING Aged Out No longer eligible based on patient's age to complete this topic MENINGOCOCCAL GROUPS A/C/Y/W VACCINE Aged Out No longer eligible b ased on patient's age to complete this topic Medical Devices Implanted Type Area [employer] Device Identifier Shelf Expiration Date Model / Serial / Lot Clip Anrsm 4.7mm Ysrg Mini 3.8mm Opn - [id number] Implanted:Qty: 1 on 09/20/2020 by Franki Zuñiga MD at [facility] Right: [employer] [id number] / [id number] / Clip Anrsm Slvr 5mm Ysrg 4mm Opn Mini - [id number] Implanted:Qty: 1 on 09/20/2020 by Franki Zuñiga MD at [facility] Right: [employer] [id number] / [id number] / Graft Tissue Drgn + Bvn Clgn Mtrx 5x4in Implanted:Qty: 1 on 09/20/2020 by Franki Zuñiga MD at [facility] Right: Cranial [employer] 06/20/2023 [id number] / / [id number] Screw 1.5mm 4mm Crnmxf Slfdrl Implanted:Qty: 14 on 09/20/2020 by Franki Zuñiga MD at [facility] Right: Cranial Synthes Maxillofacial [id number] 4.01 / / Cover Bur Hl Chucho .4mm 17mm Matrixneuro Implanted:Qty: 2 on 09/20/2020 by Franki Zuñiga MD at [facility] Right: Cranial Synthes Maxillofacial 3 / / Cover Bur Hl Chucho 24mm Matrixne[employer] Crnl Implanted:Qty: 1 on 09/20/2020 by Franki Zuñiga MD at [facility] Right: Cranial S[employer]s Maxillofacial 4 / / Plate 2 Hl Cntr Spc Rgd Crnl 12mmx.4mm Implanted:Qty: 1 on 09/20/2020 by Franki Zuñiga MD at [facility] Right: Cranial S[employer]s Maxillofacial 2 / / Procedures Procedure Name Priority Date/Time Associated Diagnosis Comments HEPATITIS C AB SCREEN RFLX NAAT QUANT STAT 09/17/2020 2:14 AM CDT from Last 3 Months or Most Recently Relevant to Health Maintenance Results * HEPATITIS C AB SCREEN RFLX NAAT QUANT (09/17/2020 2:14 AM CDT) Hepatitis C Antibody Non-react jigna Non-reac tive 09/17/2020 3:31 AM CDT [facility] Comment:Hepatitis C Antibody screen indicates no serologic evidence of past or current infection with Hepatitis C Virus. Patients with unexplained liver disease who are immunocompromised or suspected of having acute Hepatitis C infection may benefit from Nucleic Acid Test (CHELSY) for Hepatitis C Viral RNA to confirm Hepatitis C status. Blood BLOOD SPECIMEN / Unknown Venipuncture / Unknown 09/17/2020 2:14 AM CDT 09/17/2020 3:31 AM CDT us Matthew Aguilera MD LAB - CHEMISTRY ORDERABLES Fi nal Result [facility] [address] [address], [place] [phone] from Last 3 Months or Most Recently Relevant to Health Maintenance Insurance MEDICARE [facility] MEDICARE [facility] Advance Directives * Full Code (Latest Code Status on File) Date Activated Date Inactivated Comments 09/17/2020 2:46 AM 10/02/2020 12:26 PM Care Teams Casino Floorperson Relationship Specialty Start Date End Date Mingo Dotson MD [address] [place] [id number] PCP - General 12/30/20
== END 2025-05-02 14:27 | disposition home or self-care (01) ==
PROVIDERS: PCP Internal Medicine; Visit Provider Internal Medicine
DX: Z12.31 Encounter for screening mammogram for malignant neoplasm of breast (principal)
CPT/HCPCS: 77063; 77067